=== PATIENT | female | born 1960 | race Caucasian/White ===

== ENCOUNTER 2019-04-11 08:05 | Inpatient (IN) | payer MEDICARE, SELFPAY ==
[2019-04-06 09:42] VITALS: BMI 44.6
[2019-04-11] VITALS (14 sets, daily range): BP systolic 102–131; BP diastolic 61–76; PULSE 80–101; RESP 12–24; TEMP 36.2–37; O2SAT 90–98; BMI 44.9
[2019-04-11] MEDS: LACTATED RINGERS 1,000 ML 42 ML IV ×2 (09:18→12:14)
--- NOTE | 2019-04-11 09:51 | PM.PREOP ---
Pre-operative Note Interval Note History & Physical reviewed/Exam performed by Physician: Yes Changes to H&P: No
--- NOTE | 2019-04-11 10:05 | PM.OP.1 ---
Operative Date/Time/Diagnoses Date of procedure: 04/11/19 Time of procedure: 12:10 Pre-op diagnosis: Right knee osteoarthritis Post-op diagnosis: same Procedure & Clinicians Procedure: Right total knee replacement Same procedure as scheduled: Yes Indications: The patient has had progressively worsening right knee pain with radiographic changes consistent with arthritis. Non-operative management has failed and the patient has requested total knee replacement. The risks, benefits and alternatives to surgery were discussed with the patient prior to proceeding. Risks discussed included, but were not limited to, failure to relieve pain, stiffness, infection, nerve damage, deep venous thrombosis, pulmonary embolism, stroke, coma, heart attack, permanent paralysis and , as well as the potential need for eventual revision of the prosthetic. Surgeon: Quinn Rush Information Tech: Maura Eller Click Yes if Unassisted: No Anesthesia Type: General, Spinal and Local Operative Notes Findings: Significant varus deformity and medial predominant osteoarthritis with some involvement of the patellofemoral joint. Closure Type: primary Specimen(s): none sent Prosthetic devices, grafts, tissues, transplants, or devices: Implants used in this procedure were manufactured by the [employer] and included the BCS II Journey total knee replacement with a size 3 right Oxinium femoral component, a size 3 right non porous tibial base plate, a 9 mm cross-linked polyethylene insert and a 32 mm oval Nabila II patella. Applied: implant(s) Estimated Blood Loss (mL): 25 Blood products transfused: none Tourniquet time (min): 61 Procedure in detail: The patient was seen in the pre-operative area, where the patient identified the right knee as the operative site and this was marked with my initials. The patient received pre-operative antibiotics, and was taken to the operating room and placed on the operative table in the supine position. After satisfactory anesthesia, a construction job cost estimator out was performed. The right leg was encircled with a tourniquet about the proximal thigh, and the leg was prepared from the toes to the tourniquet with ChloroPrep in the usual fashion and draped through sterile drapes. The leg was elevated and exsanguinated with Eschmark bandage and the tourniquet inflated to 250 mmHg pressure. The knee was approached through an approximately 18 cm incision centered over the patella and carried into the knee through a medial parapatellar arthrotomy. The anterior osteophytes and soft tissues were removed. The rotational landmarks of [place] line and the transepicondylar axis were marked on the femur with electrocautery, and intramedullary guide holes for the femur and tibia were created. The distal femoral cut was made in 6 degrees of valgus using the intramedullary guide at the primary cut setting. The proximal tibial cut was then made using the intramedullary guide, taking 9 mm of bone off the less involved side. The extension gap was checked and the rotation of the femoral component confirmed with the gap balancing system. There was medial tightness which was symmetric in both flexion and extension. All osteophytes on the medial side had been removed. A medial soft tissue release was performed to rebalance the knee. This successfully created balanced flexion and extension gaps. The anterior, posterior and chamfer cuts were then made. The posterior osteophytes and soft tissues were then removed. The posterior capsule was injected with part of a mixture of 60 ml 0.25% Marcaine mixed with 20 ml Exparel and 4 mg of morphine for post-operative pain control. The remainder of this mixture was injected into the capsule and subcutaneous tissues during cement curing. The tibia was prepared with the rotation set by an extra medullary guide. Trial tibial and femoral components were then placed and the intercondylar notch cut through the femoral trial. Range of motion was 0-130 degrees, with good stability throughout the range. The patella was then cut to accommodate the patellar prosthetic. There was no need for a lateral release. The trials were then removed, and the femoral hole plugged with a bone plug. The bone was prepared with pulsatile lavage, and dried with a sponge. Cement was applied and the final prosthetics placed. Excess cement was removed during and after cement curing. After confirming there was no extruded cement posteriorly, the final tibial insert was placed. The knee was copiously irrigated and the tourniquet deflated. Hemostasis was obtained. The capsule was closed with interrupted # 2 polyester suture. The subcutaneous layer was closed with 3-0 Vicryl, and the skin with a running 3-0 V-Lock suture and SteriStrips. An Aquacel Ag dressing was applied and the patient was taken to recovery having tolerated the procedure well. Complications: none Post-operative Condition: stable Disposition: PACU Plan for aftercare: The patient will be maintained on a standard total knee replacement protocol with weight bearing as tolerated. The patient will receive aspirin and sequential compression devices for DVT prophylaxis. The patient will be discharged home when safe for the home environment.
[2019-04-11] MEDS: PREGABALIN 75 MG CAPSULE PO (10:30)
[2019-04-11] MEDS: ACETAMINOPHEN 325 MG TABLET 975 MG PO ×3 (10:30→20:36)
[2019-04-11] MEDS: CELECOXIB 200 MG CAPSULE PO (10:30)
[2019-04-11] MEDS: VANCOMYCIN 1,000 MG/200 ML PIGGYBACK 200 MG IV ×2 (10:31→21:12)
[2019-04-11] MEDS: BUPIVACAINE LIPOSOME 266 MG/20 ML VIAL INJ (11:18)
[2019-04-11] MEDS: TRANEXAMIC ACID 1,000 MG VIAL 2000 MG INJ (11:19)
[2019-04-11] MEDS: BUPIVACAINE 0.25% W/ EPI 30 ML VIAL 60 ML INJ (11:19)
[2019-04-11] MEDS: GENTAMICIN 200 MG in SODIUM CHLORIDE 0.9% 100 ML 105 ML IV (11:24)
--- NOTE | 2019-04-11 11:28 | SUR.OPER ---
Supine on padded OR bed. Pillow under head, arms secured on padded armboards <90 degree abduction. Safety belt across torso. Non-operative leg secured with tape over blanket over lower leg. Operative leg secured in DeMayo positioner. Foam padded brace at thigh of operative leg.
--- NOTE | 2019-04-11 13:37 | DI.RAD.S_ITS ---
PROCEDURE: XR KNEE RT 1TO2V INDICATIONS: POST OPERATIVE TOTAL RIGHT KNEE TECHNIQUE: 2 view(s) of the knee acquired. COMPARISON: None. FINDINGS: Bones: Patient is status post knee joint arthroplasty. Hardware components are in expected positions. Visualized bony structures are intact. Soft tissues: Overlying postoperative changes are noted. IMPRESSION: Expected appearance post right knee arthroplasty. Dictated by: Laura Lincoln M.D. on 04/11/2019 at 15:08 Approved by: Laura Lincoln M.D. on 04/11/2019 at 15:09
--- NOTE | 2019-04-11 14:43 | PT-IP ANOTE ---
PT order received, pt just got up to floor and not yet ready to participate in PT eval. Will check back later.
[2019-04-11] MEDS: LACTATED RINGERS 1,000 ML 125 ML IV (14:44)
[2019-04-11] MEDS: OXYCODONE IR 5 MG TABLET PO (18:01)
[2019-04-11] MEDS: hydrOXYzine pamoate 25 MG CAPSULE PO (18:47)
[2019-04-11] MEDS: HYDROMORPHONE 0.5 MG INJ IV ×2 (18:47→21:36)
[2019-04-11] MEDS: CHOLECALCIFEROL (VITAMIN D3) 5,000 UNIT TABLET 5000 UNIT PO (20:36)
[2019-04-11] MEDS: METFORMIN HCL 500 MG TABLET PO (20:37)
[2019-04-11] MEDS: ROSUVASTATIN 10 MG TABLET PO (20:37)
[2019-04-11] MEDS: ASPIRIN EC 81 MG TABLET PO (20:37)
[2019-04-11] MEDS: IBUPROFEN 400 MG TABLET 800 MG PO (20:37)
[2019-04-11] MEDS: DOCUSATE 100 MG CAPSULE PO (20:37)
[2019-04-12] VITALS (8 sets, daily range): BP systolic 92–117; BP diastolic 57–74; PULSE 79–88; RESP 16–20; TEMP 36.6–37.2; O2SAT 93–99
[2019-04-12] MEDS: PANTOPRAZOLE 20 MG TABLET PO (06:06)
[2019-04-12] MEDS: HYDROMORPHONE 0.5 MG INJ IV ×2 (06:30→10:25)
[2019-04-12] MEDS: hydrOXYzine pamoate 25 MG CAPSULE PO ×3 (06:31→23:32)
--- NOTE | 2019-04-12 07:32 | PM.PN.1 ---
Subjective Subjective Date Patient Seen: 04/12/19 Time Patient Seen: 07:32 Interval history: The patient reports she has had uneven pain control overnight. She recently required IV Dilaudid for pain control. Exam Vital Signs (past 8 hours): - 04/12/19 01:12 04/12/19 04:56 Temperature 98 F 98.2 F Pulse Rate 83 83 Respiratory Rate 16 16 Blood Pressure 117/67 115/73 Pulse Oximetry 96 96 Oxygen Delivery Method Nasal Cannula,CPAP Oxygen Flow Rate 0 Narrative Exam Narrative: The right knee wound is dressed with no drainage on the bandage. Calf is soft. Light touch and motion are intact in the right lower extremity. Objective Labs Result Diagrams: 04/12/19 07:07 Assessment & Plan Assessment & Plan narrative: The patient is stable on postoperative day 1 but has moderate pain control issues. She will work with physical therapy today. We will continue to work on controlling her pain. It is likely she will be ready for discharge tomorrow or at the latest the following day. Time Spent With Patient Time with patient: less than 15 minutes
[2019-04-12] MEDS: ACETAMINOPHEN 325 MG TABLET 975 MG PO ×3 (08:46→20:34)
[2019-04-12] MEDS: TRIAMTERENE/HCTZ 37.5/25 TABLET 1 CAP PO (08:47)
[2019-04-12] MEDS: METFORMIN HCL 500 MG TABLET PO ×2 (08:47→20:34)
[2019-04-12] MEDS: FENOFIBRATE 160 MG TABLET PO (08:47)
[2019-04-12] MEDS: GLIMEPIRIDE 2 MG TABLET 1 MG PO (08:47)
[2019-04-12] MEDS: DOCUSATE 100 MG CAPSULE PO ×2 (08:48→20:34)
[2019-04-12] MEDS: LOSARTAN 50 MG TABLET 100 MG PO (08:48)
[2019-04-12] MEDS: FUROSEMIDE 20 MG TABLET 80 MG PO (08:48)
[2019-04-12] MEDS: POTASSIUM CHLORIDE 10 MEQ TAB PO (08:48)
[2019-04-12] MEDS: IBUPROFEN 400 MG TABLET 800 MG PO ×2 (08:48→20:35)
[2019-04-12] MEDS: AMLODIPINE 5 MG TABLET PO (08:48)
[2019-04-12] MEDS: ASPIRIN EC 81 MG TABLET PO ×2 (08:48→20:34)
[2019-04-12] MEDS: INSULIN ASPART 100 UNIT/ML INSULN PEN SUBCUT ×3 (08:50→16:57)
[2019-04-12 09:35] LABS: Hematocrit 34.1 % (36-46); Hemoglobin 11.7 g/dL (12.0-16.0)
--- NOTE | 2019-04-12 10:46 | PC.NURSE ---
Day Shift- Poke with LAVONNE Montenegro this AM at 0745, regarding pt's allergy to Oxycodone and Hydrocodone. Only Dilaudid IV prn available for pain management at this time. PA stated he will look into changing PRN PO pain meds to Dilaudid PO. Pt's pain currently 6/10 deep ache to right knee and thigh Left message on LAVONNE Lorenzo cell regarding needing new pain med orders. Faxed Ortho Team in surgery at 1040 regarding above. Spoke with LAVONNE Perkins on unit at 1045 regarding pain management. Who will place new orders, pt's pain now 8-9/10, Dilaudid IV prn given at 1025. Right knee aquacel dressing CDI, donna wrap in place, CMS +
[2019-04-12] MEDS: HYDROMORPHONE 2 MG TABLET PO ×4 (11:01→23:32)
--- NOTE | 2019-04-12 11:10 | CM.DANOTE ---
Patient recent surgery of R knee replacement. Very pleasant and A&O x 4. Reports she has low pain tolerance, so is worried about being discharged home before she feels she's ready. Pt. has not yet seen therapy. When asked about her thoughts regarding discharge plan she stated that she wants to go home, but I'd like to be pain free first. This RN educated patient about pain medications and their benefits/limitations. She has 4 steps to manage. Her has set up the house to make it easier for her to maneuver. She has walkers, shower chair rails where needed,etc. She states her is on board with caring for her as long as it doesn't involve a great deal of manual labor. I mentioned the option for SNF, but she really would prefer to go home if possible. Didn't discuss SNF choices at this time.
--- NOTE | 2019-04-12 13:15 | PT.IIE ---
Current Diagnoses Unilateral primary osteoarthritis, right knee (04/11/19) Surgery Performed Operation Date: 04/11/19 10:15 Actual Procedures p Total Knee Arthroplasty(Right) - Quinn Rush MD Surgical History (Last Updated 04/06/19 @ 10:28 by Macey Wyatt, RN) History of bladder surgery (Acute ~2010) Hx of appendectomy (Acute) Hx of arthroscopy of left knee (Acute) Hx of arthroscopy of right knee (Acute) Hx of cholecystectomy (Acute) Hx of laminectomy (Acute) S/P foot surgery, right (Acute) Medical History (Last Updated 04/06/19 @ 10:28 by Macey Wyatt RN) Depression (Acute) Diabetes (Acute) Diabetic neuropathy (Acute) Edema (Acute) Enlarged liver (Acute) Former smoker (Acute) GERD (gastroesophageal reflux disease) (Acute) H/O: hysterectomy (Acute ~1988) HLD (hyperlipidemia) (Acute) HTN (hypertension) (Acute) Migraines (Acute) JOÃO on CPAP (Acute) Pulmonary fibrosis (Acute) RLS (restless legs syndrome) (Acute) Physical Therapy Inpatient Evaluation/Re-Eval M1 PT/OT-IP Prior Functional Status Start: 04/11/19 14:30 Freq: NEEDED Status: Active Protocol: Document 04/12/19 12:59 AW (Rec: 04/12/19 13:15 AW [email or web address]) Medical Review Prior Functional Status Medical History Reviewed Yes Diet/Fluid Consistency Regular Communication Able to make needs known Mobility and Gait Pt reports she used a SBQC for community distance ambulation , no assistive device at home, though she does admit to occasionally using furniture/ dave to stabilize. Activities of Daily Living and IADL's Independent Social History Household Members spouse Living Arrangements House Number of Floors (Floors) One Floor Number of Stairs To Enter/Railing? 4 [place] with no railing Home Environment Standard Height Toilet,Tub/ Shower Home Equipment Front Wheel Walker,Quad Cane, Raised Toilet Seat w/Armrests, Shower Seat with Backrest,Hand Held Shower Employment Status Unemployed Additional Social History Comment Pt has a SBQC, standard walker , and 4WW for mobility M2 PT-IP Current Condition Start: 04/11/19 14:30 Freq: NEEDED Status: Active Protocol: Document 04/12/19 12:59 AW (Rec: 04/12/19 13:15 AW [email or web address]) Physical Therapy Current Condition Current Condition Evaluation Date 04/12/19 Treatment Diagnosis s/p R TKA, impaired transfers and gait Weight Bearing Status Weight Bearing Status Weight Bear as Tolerated M3 PT-IP Subjective Start: 04/11/19 14:30 Freq: NEEDED Status: Active Protocol: Document 04/12/19 12:59 AW (Rec: 04/12/19 13:15 AW [email or web address]) Subjective Physical Therapy Visit Type Type Initial Evaluation Visit Start Time 11:59 Visit Stop Time 12:31 Total Visit Minutes 32 Number of FISHER POT Visits 0 Physical Therapy Visit Comments Patient Comments Pt reports pain which improved with IV dilaudid but continues with 6/10 pain at rest. Patient Goals At beginning of session, pt hopes to return home with spouse assist. By end of session, she was open to considering SNF rehab Therapy Pain Assessment Pain When Pain Assessed During Mobility Pain Present Pain Present Pain Reported Location Right Knee Intensity 10 Scale Used 6/10 at rest, 10/10 with short bout ambulation using FWW Pain Management Techniques Apply Cold,Modification of Treatment,Re-positioning, Timing of Activity with Medications M4 PT-IP Mobility and Gait Start: 04/11/19 14:30 Freq: NEEDED Status: Active Protocol: Document 04/12/19 12:59 AW (Rec: 04/12/19 13:15 AW [email or web address]) PT-Bed Mobility Assessment Rolling Type of Rolling Roll to Right Level of Assist Contact Guard Assistance Supine to Sit Supine to Sit Contact Guard Assistance Scooting Scooting to Edge of Bed Standby Assistance PT-Transfer Assessment Sit to and From Stand Sit to and from Stand Minimal Assistance Equipment Transfer Assistive Device Gait Belt,Front Wheeled Walker Orthotic/Prosthetic Devices or Brace: No Transfers Transfer Destination Chair,Bedside Commode Transfer Technique Stand Step Pivot Transfer Ability Level of Assist Minimal Assistance Comments Mobility Comments Pt required min assist to stand step pivot from EOB to BSC and min assist from BSC to chair. Gait Assessment Gait Gait Assistance Required: Contact Guard Assist,Minimum Assistance Distance (Feet) 5 Able to Maintain Weight Bearing Status Yes During Gait Assistive Devices Assistive Device Gait Belt,Front Wheeled Walker Orthotic/Prosthetic Devices or Brace: No Gait Deviations General Gait Pattern Antalgic,Decreased Stride Length,Decreased Feet Clearance,Flexed Trunk,Step-to Gait Factors Limiting Gait Function Factors Limiting Gait Function Decreased Activity Tolerance, Decreased Sensation,Limited Range of Motion,Pain,Poor Balance Comments Gait Comments Pt with good safety awareness but pain limiting ambulation distance with min assist required for ambulation 5 feet with FWW. Pt had one lateral loss of balance which required assist for recovery. PT-Balance Assessment Sitting Balance and Reactions Static Sitting Balance Ability Good Dynamic Sitting Balance Ability Good Standing Balance and Reactions Static Standing Balance Ability Fair Dynamic Standing Balance Ability Fair Device Used FWW M5 PT-IP Objective Assessments Start: 04/11/19 14:30 Freq: NEEDED Status: Active Protocol: Document 04/12/19 12:59 AW (Rec: 04/12/19 13:15 AW [email or web address]) Orientation Orientation/Cognition Level of Alertness Alert Orientation Name,Date,Place,Situation Language Function Ability No Deficits Noted Safety Awareness Understands Safety Issues Memory Description No Deficits Noted Gross Range of Motion Upper Extremity ROM Assessment Within Functional Limits Lower Extremity ROM Assessment Right Impaired Impairments painful R knee ROM Strength Upper Extremity Strength Assessment Within Functional Limits Lower Extremity Strength Assessment Right Impaired Coordination Assessment Gross Coordination Gross Coordination WNL Sensation Assessment Sensation Gross Sensation WNL Muscle Tone Muscle Tone WNL Yes M6 PT-IP Treatment Start: 04/11/19 14:30 Freq: NEEDED Status: Active Protocol: Document 04/12/19 12:59 AW (Rec: 04/12/19 13:15 AW [email or web address]) Physical Therapy Treatment Exercises Exercises Ankle Pumps,Quad Sets,Passive Knee Extension Hang Education Education Provided Precautions,Weight Bearing Status,Post-Op Packet,Safety M7 PT-IP Assessment and Plan Start: 04/11/19 14:30 Freq: NEEDED Status: Active Protocol: Document 04/12/19 12:59 AW (Rec: 04/12/19 13:15 AW [email or web address]) PT Summary Assessment and Plan Potential Rehabilitation Potential Good Status of Condition at Evaluation Evolving Summary Impairments Pain,ROM,Strength,Balance,Bed Mobility,Transfers,Gait, Activity Tolerance Assessment Summary Pt is a 58 yo woman seen on POD1 following R TKA. PLOF: According to pt, she was ambulating household distances with no assistive device but with occasional need to cruise furniture for support. She used a SBQC for ambulating community distances. PLOF: Pt requiring min assist for transfers and gait with FWW, reporting sharp increase in pain with mobility (from 6/10 at rest to 10/10). Spouse is available to assist at home, but stairs are likely a barrier to home entry. Reviewed PT plan of care, post -op exercises, and safe use of FWW. Pt would benefit from SNF rehab for strengthening and increased independence in transfers, gait, and stairs before return to home. Goals Bed Mobility Goal Standby Assistance Transfer Goal Standby Assistance Gait Goal Standby Assistance Gait Distance 50 Other Goals Pt to ascend/descend 4 steps with hand-hold assist/CGA Days to Meet Goals 8 Frequency of Treatment Frequency Of Treatment Twice a Day Treatment Plan Physical Therapy Treatment Plan Bed Mobility Training,Transfer Training,Gait Training, Therapeutic Exercise,Balance Retraining,Post Op Education, Discharge Planning,Hot or Cold Pack,Neuromuscular Re-ed, Coordination Retraining,Manual Therapy Other Recommendations and Next Treatment Progress gait distance as Focus tolerated. May require wheelchair follow. Recommendations To Nursing Amount of Assist Needed 2 Person Assist Discharge Recommendations PT Discharge Recommendations SNF Rehab Other Discharge Recommendations Will continue to assess, but pt likely will need SNF rehab for safe return to home
--- NOTE | 2019-04-12 16:30 | CM.DANOTE ---
Addendum entered by Carolann Cotto 04/13/19 09:03: Received verbal referral from therapy that SNF recommended. SUBSYSTEMS ENGINEER met with patient and spouse re: d/c options. Patient agreeable to short SNF stay if needed and her insurance will cover. Contracted provider for [employer] in [place] is Dawn Pennington. Therefore, this is patient/spouse choice. Asked COUNTY SURVEYOR/Ashley to fax clinical to Dawn Pennington for review and to start authorization process. Patient aware that if she improves over the next 24hrs. SNF can be cancelled. P: CM team to continue to follow closely. ARMANDO Marquez Original Note: *[facility] [place] Female : 1960 MedRec# [id number] 04/12/19 11:10 - CM Disch. Assessment Note by Rosalina Bryan RN Acct Num: [id number] : 1960 Patient Age: 58 Patient recent surgery of R knee replacement. Very pleasant and A&O x 4. Reports she has low pain tolerance, so is worried about being discharged home before she feels she's ready. Pt. has not yet seen therapy. When asked about her thoughts regarding discharge plan she stated that she wants to go home, but I'd like to be pain free first. This RN educated patient about pain medications and their benefits/limitations. She has 4 steps to manage. Her has set up the house to make it easier for her to maneuver. She has walkers, shower chair rails where needed,etc. She states her is on board with caring for her as long as it doesn't involve a great deal of manual labor. I mentioned the option for SNF, but she really would prefer to go home if possible. Didn't discuss SNF choices at this time. Initialized on 04/12/19 11:10 - END OF NOTE Discharge Planning/Care Management CM Discharge Assessment Start: 04/12/19 16:24 Freq: Status: Active Protocol: Document 04/12/19 16:24 LANNY (Rec: 04/12/19 16:29 LANNY [email or web address]) Discharge Planning Assessment Assigned Administrative Law Judge Winifred Bryan Advance Directives? No History Provided By Patient,Family Member Has Patient been admitted in last 30 No days? Prior Living Arrangements House Household Members spouse Independent with ADL's Yes Is patient alert and oriented? Yes Needs Assistance With Bathing,Grooming,Meal Prep, Toileting,Managing Medications ,Home Chores / Shopping Comment PT/OT evaluations pending Comment pending needs assessment Discharge Plan Left AMA Please Provide Date Initial DC 04/12/19 Assessment Was Performed Pre-Anesthesia Assessment Start: 04/06/19 09:42 Freq: Status: Complete Protocol: Document 04/06/19 09:42 CAB (Rec: 04/06/19 11:06 CAB [id number]) Pre-Anesthesia Assessment PAC Comment Anesthesia review, pulmonary consult, PFT, PCP clearance, Echo scanned to record Patient Information Reviewed Via Phone Assessment Assessment Completed With Patient Diagnostic Results BMP/CMP,CBC,Urinalysis Comment Outside labs/EKG 01/21/19 scanned to record Primary Care Provider Macario Montaño Medical Clearance Received Yes Seen Specialist in Last 12 Months Yes Specialist Seen Orthopedist,Rd Scientist Comment PCP pre-op clearance 01/17/19 scanned to record Primary Language [place] Land Management Supervisor Required No Height 162.56 cm Weight 117.934 kg Body Mass Index (BMI) 44.6 Hearing Ability Normal Visual Assist Glasses Dentition Type Teeth, Natural Present Barriers to Learning None Other Aids Yes: CPAP Hx Anesthesia Reactions Yes: Hard to bring me out, bad headaches Hx Family Anesthesia Reaction No: Unknown, pt is adopted Hx Malignant Hyperthermia No Hx Blood Transfusions No Anesthesia Review Requested Yes: PFT requested by Anesthesia, scanned to record alcohol intake former Smoking Status Former smoker Tobacco type cigarettes Smoking packs per day 1 how long ago did patient quit smoking Quit 1993 Substance Use Type does not use Pain Present Pain Reported Musculoskeletal Symptoms Abnormal Gait,Back Pain, Difficulty Walking,Joint Pain, Muscle Weakness,Neck Pain, Numbness History of Falling (Recent or History of No ) Patient is completely paralyzed or No completely immobile Prosthesis or Orthotic Device Cane Mental Status Oriented to own ability Is patient on oxygen? No Does patient have [place]/SOB Yes: Hx Pulmonary fibrosis Hx Sleep Apnea Yes CPAP/BIPAP use prescribed and used routinely Will Bring CPAP/BIPAP DOS Yes Comment PFT per Anesthesia, Pulmonary consult scanned to record Currently Taking a Beta Karena No Can You Climb a Flight of Stairs Without No SOB Hx Chest Pain No Hx SOB Yes Hx Syncope or Dizziness No Anti-Coagulant Therapy No Has a Choir Singer No Cardiac Testing Yes: Echo 01/03/19 [facility] EF 60- 65% Hx Pacemaker/ICD No Pacemaker Rep Required? No Cardiac Clearance Received Not Applicable Diet Type At Home Regular dysphagia No Bladder Pattern Frequency,Incontinent,Nocturia ,Urgency Urinary Catheter Present No Hx Urinary Self Catheterization No Diabetes Does not check blood sugar HgbA1C 6.1 Date 01/21/19 Patient No Lactating No Hx Drug Resistant Organism No Presence of External or Internal Medical Yes: Bladder mesh, CPAP Devices Have you traveled outside the [facility] in the last 30 days? Marital Status Lives With spouse Prior Living Arrangements House Number of Floors (Floors) One Floor Support System Spouse Does the Patient Have Assistance After Yes Surgery Patient Discharge Plan Description Return Home Comment Pt advised 3-5 day length of stay per surgeon Feels Safe in Current Environment Yes Been Physically Hurt or Threatened By a No Person in Current Environment Do you have thoughts of harming yourself None or others? Are you currently considering suicide? No Do you have a plan to hurt yourself or No Plan others? Do You Have Any Spiritual Beliefs That No May Affect Your HC Choices? Do You Have Any Cultural Practices That No May Affect Your HC Choices? Comment Mosque Who Can We Speak to About Patient's Care Family, friends Identifying Code for Release of Patient Bandit Information Health Care Proxy/Next of Kin Will () Health Care Proxy Emergency Contact Name Will () Emergency Contact Advance Directives? No: Declines further information PAC Instructions Bring CPAP/BIPAP,Do not shave/ clip surgical site,Durable medical equipment,Medications to take/avoid,Nasal antibiotic ,No ETOH/petroleum product on skin DOS,Pre-surgical wash, Sturdy shoes/comfortable clothes,Do not bring valuables and remove jewelry
--- NOTE | 2019-04-12 17:10 | PT-IP ANOTE ---
Contacted pt at 1705. She had her dinner tray, was fatigued and complaining of 8/10 pain, asked to defer treatment today. Will follow up 04/13/19
[2019-04-12] MEDS: ROSUVASTATIN 10 MG TABLET PO (20:34)
[2019-04-12] MEDS: CHOLECALCIFEROL (VITAMIN D3) 5,000 UNIT TABLET 5000 UNIT PO (20:35)
[2019-04-12] MEDS: SODIUM CHLORIDE 0.9% FLUSH 10 ML IV (20:35)
[2019-04-13 03:00] VITALS: BP 115/67; PULSE 76; RESP 16; TEMP 36.9; O2SAT 94
[2019-04-13] MEDS: PANTOPRAZOLE 20 MG TABLET PO (05:39)
[2019-04-13] MEDS: HYDROMORPHONE 2 MG TABLET PO ×5 (05:39→21:41)
--- NOTE | 2019-04-13 06:56 | PM.PNPO.1 ---
Subjective Subjective Date Patient Seen: 04/13/19 Time Patient Seen: 06:56 Interval history: The patient reports that she has good pain control this morning. She had significant pain control difficulties late last evening. She made minimal progress with physical therapy and refused her 2nd therapy session yesterday. At this point physical therapy is recommending likely fpc facility placement. Exam Vital Signs (past 8 hours): - 04/12/19 23:23 04/13/19 03:00 Temperature 99 F 98.5 F Pulse Rate 82 76 Respiratory Rate 16 16 Blood Pressure 113/74 115/67 Pulse Oximetry 93 94 Oxygen Delivery Method Room Air,CPAP Oxygen Flow Rate 0 Narrative Exam Narrative: Right knee wound is dressed with no drainage on the bandage. Calf is soft. Light touch and motion are intact in the right lower extremity. Objective Labs Result Diagrams: 04/12/19 09:20 Labs: Laboratory Results - last 24 hr 04/12/19 09:20 Hgb 11.7 L Hct 34.1 L Assessment & Plan Post-op Postoperative Procedures: Procedures Operation Date: 04/11/19 10:15 Actual Procedures Side Surgeon p Total Knee Arthroplasty Right Quinn Rush MD Postoperative day: 2 Postoperative status: doing well, marginal pain control and anemia Postoperative status narrative: The patient is medically stable postoperative day 2 after right total knee replacement. She has the expected post hemorrhagic anemia. She has been having marginal pain control and has not been proactive in physical therapy. Postoperative plan: routine post-op care and ambulate Postoperative plan narrative: I have encouraged the patient to work harder in physical therapy. I have explained to her that fpc facilities are not spas and that it is highly unlikely she is going to enjoy staying there. I have explained to her that she will do better in the long run if she is ready to discharge to home. We will keep her in the hospital through tomorrow to give her additional attempts at physical therapy. Have explained to her that I am not happy with her decision to cancel therapy yesterday afternoon. I have explained that I would like her to take part in all her therapy sessions. She understands. She is aware that she will be seen tomorrow by a physician's secretary administrative assistant as I am starting very early and [place] tomorrow morning. Time Spent With Patient Time with patient: less than 15 minutes
[2019-04-13 08:00] VITALS: BP 123/67; PULSE 90; RESP 22; TEMP 36.8; O2SAT 92
[2019-04-13] MEDS: IBUPROFEN 400 MG TABLET 800 MG PO ×2 (09:08→21:41)
[2019-04-13] MEDS: ACETAMINOPHEN 325 MG TABLET 975 MG PO ×3 (09:08→21:41)
[2019-04-13] MEDS: ASPIRIN EC 81 MG TABLET PO ×2 (09:08→21:41)
[2019-04-13] MEDS: GABAPENTIN 400 MG CAPSULE 800 MG PO (09:09)
[2019-04-13] MEDS: POTASSIUM CHLORIDE 10 MEQ TAB PO (09:09)
[2019-04-13] MEDS: AMLODIPINE 5 MG TABLET PO (09:09)
[2019-04-13] MEDS: FUROSEMIDE 20 MG TABLET 80 MG PO (09:09)
[2019-04-13] MEDS: DOCUSATE 100 MG CAPSULE PO ×2 (09:09→21:41)
[2019-04-13] MEDS: METFORMIN HCL 500 MG TABLET PO ×2 (09:09→21:41)
[2019-04-13] MEDS: TRIAMTERENE/HCTZ 37.5/25 TABLET 1 CAP PO (09:10)
[2019-04-13] MEDS: FENOFIBRATE 160 MG TABLET PO (09:10)
[2019-04-13] MEDS: GLIMEPIRIDE 2 MG TABLET 1 MG PO (09:10)
[2019-04-13] MEDS: SODIUM CHLORIDE 0.9% FLUSH 10 ML IV ×2 (09:11→21:42)
--- NOTE | 2019-04-13 10:35 | PT.IPTN ---
Current Diagnoses Unilateral primary osteoarthritis, right knee (04/11/19) Surgery Performed Operation Date: 04/11/19 10:15 Actual Procedures p Total Knee Arthroplasty(Right) - Quinn Rush MD Physical Therapy Treatment Note M2 PT-IP Current Condition Start: 04/11/19 14:30 Freq: NEEDED Status: Active Protocol: Document 04/12/19 12:59 AW (Rec: 04/12/19 13:15 AW [email or web address]) Physical Therapy Current Condition Current Condition Evaluation Date 04/12/19 Treatment Diagnosis s/p R TKA, impaired transfers and gait Weight Bearing Status Weight Bearing Status Weight Bear as Tolerated M3 PT-IP Subjective Start: 04/11/19 14:30 Freq: NEEDED Status: Active Protocol: Document 04/13/19 10:30 GGD (Rec: 04/13/19 12:08 GGD [id number]) Subjective Physical Therapy Visit Type Type Treatment Note Visit Start Time 10:05 Visit Stop Time 10:33 Total Visit Minutes 28 Number of GLASS BULB SILVERER Visits 1 Physical Therapy Visit Comments Patient Comments Pt needs to use the bathroom. Therapy Pain Assessment Pain When Pain Assessed During Mobility Pain Present Pain Present Pain Reported Location Right Knee Intensity 7 Scale Used Numeric (1 - 10) Pain Management Techniques Apply Cold,Modification of Treatment,Re-positioning, Timing of Activity with Medications M4 PT-IP Mobility and Gait Start: 04/11/19 14:30 Freq: NEEDED Status: Active Protocol: Document 04/13/19 10:30 GGD (Rec: 04/13/19 12:08 GGD [id number]) PT-Bed Mobility Assessment Rolling Type of Rolling Roll to Right Level of Assist Contact Guard Assistance Supine to Sit Supine to Sit Contact Guard Assistance, Bedrails Scooting Scooting to Edge of Bed Standby Assistance PT-Transfer Assessment Sit to and From Stand Sit to and from Stand Contact Guard Assistance Equipment Transfer Assistive Device Gait Belt,Front Wheeled Walker Orthotic/Prosthetic Devices or Brace: No Transfers Transfer Destination Chair,Toilet Transfer Ability Level of Assist Contact Guard Assistance,1 Person Assistance,Use of Upper Extremities Gait Assessment Gait Gait Assistance Required: Contact Guard Assist,1 Person Assist Distance (Feet) 30 Assistive Devices Assistive Device Gait Belt,Front Wheeled Walker Orthotic/Prosthetic Devices or Brace: No Gait Deviations General Gait Pattern Antalgic,Decreased Stride Length,Decreased Feet Clearance,Flexed Trunk,Step-to Gait Factors Limiting Gait Function Factors Limiting Gait Function Decreased Activity Tolerance, Decreased Sensation,Limited Range of Motion,Pain,Poor Balance M5 PT-IP Objective Assessments Start: 04/11/19 14:30 Freq: NEEDED Status: Active Protocol: Document 04/12/19 12:59 AW (Rec: 04/12/19 13:15 AW [email or web address]) Orientation Orientation/Cognition Level of Alertness Alert Orientation Name,Date,Place,Situation Language Function Ability No Deficits Noted Safety Awareness Understands Safety Issues Memory Description No Deficits Noted Gross Range of Motion Upper Extremity ROM Assessment Within Functional Limits Lower Extremity ROM Assessment Right Impaired Impairments painful R knee ROM Strength Upper Extremity Strength Assessment Within Functional Limits Lower Extremity Strength Assessment Right Impaired Coordination Assessment Gross Coordination Gross Coordination WNL Sensation Assessment Sensation Gross Sensation WNL Muscle Tone Muscle Tone WNL Yes M6 PT-IP Treatment Start: 04/11/19 14:30 Freq: NEEDED Status: Active Protocol: Document 04/13/19 10:30 GGD (Rec: 04/13/19 12:08 GGD [id number]) Physical Therapy Treatment Exercises Exercises Ankle Pumps,Quad Sets,Heel Slides,Seated Knee Flexion/ Extension Education Education Provided Safety M7 PT-IP Assessment and Plan Start: 04/11/19 14:30 Freq: NEEDED Status: Active Protocol: Document 04/13/19 10:30 GGD (Rec: 04/13/19 12:08 GGD [id number]) PT Summary Assessment and Plan Summary Assessment Summary Pt able to progress gait distance. She had heavy use of UE. Pt needed use of UE for sit to stand Frequency of Treatment Frequency Of Treatment Twice a Day Treatment Plan Physical Therapy Treatment Plan Bed Mobility Training,Transfer Training,Gait Training, Therapeutic Exercise,Balance Retraining,Post Op Education, Discharge Planning,Hot or Cold Pack,Neuromuscular Re-ed, Coordination Retraining,Manual Therapy Other Recommendations and Next Treatment stair training with family Focus Recommendations To Nursing Amount of Assist Needed 1 Person Assist Discharge Recommendations PT Discharge Recommendations Home with Assistance
--- NOTE | 2019-04-13 11:18 | PC.NURSE ---
AM NOTE - pt is alert, states r knee pain 8 on scale 0/10, has ice pack to knee, aquacell w/donna wrap over cdi, + cms feet, discussed pain mgt and given tylenol w/ibuprofen after breakfast and then 2mg po dilaudid prior to phys therapy, pt able to stand x 1 person w/fww, ambul around bed to chair, pain managed with medications given, ra 96%.
[2019-04-13 12:22] VITALS: BP 98/58; PULSE 80; RESP 20; TEMP 36.8; O2SAT 94
[2019-04-13] MEDS: INSULIN ASPART 100 UNIT/ML INSULN PEN SUBCUT (12:43)
--- NOTE | 2019-04-13 14:15 | PT.IPTN ---
Current Diagnoses Unilateral primary osteoarthritis, right knee (04/11/19) Surgery Performed Operation Date: 04/11/19 10:15 Actual Procedures p Total Knee Arthroplasty(Right) - Quinn Rush MD Physical Therapy Treatment Note M2 PT-IP Current Condition Start: 04/11/19 14:30 Freq: NEEDED Status: Active Protocol: Document 04/12/19 12:59 AW (Rec: 04/12/19 13:15 AW [email or web address]) Physical Therapy Current Condition Current Condition Evaluation Date 04/12/19 Treatment Diagnosis s/p R TKA, impaired transfers and gait Weight Bearing Status Weight Bearing Status Weight Bear as Tolerated M3 PT-IP Subjective Start: 04/11/19 14:30 Freq: NEEDED Status: Active Protocol: Document 04/13/19 14:04 AMH (Rec: 04/13/19 14:14 AMH [email or web address]) Subjective Physical Therapy Visit Type Type Treatment Note Visit Start Time 13:25 Visit Stop Time 14:00 Total Visit Minutes 35 Number of YEAST FERMENTATION ATTENDANT Visits 0 Physical Therapy Visit Comments Patient Comments pt reports she is ready to work on the stair with PT Therapy Pain Assessment Pain When Pain Assessed During Mobility Pain Present Pain Present Pain Reported Location Right Knee Intensity 9 Scale Used Numeric (1 - 10) M4 PT-IP Mobility and Gait Start: 04/11/19 14:30 Freq: NEEDED Status: Active Protocol: Document 04/13/19 14:04 AMH (Rec: 04/13/19 14:14 AMH [email or web address]) PT-Transfer Assessment Sit to and From Stand Sit to and from Stand Contact Guard Assistance Equipment Transfer Assistive Device Gait Belt,Front Wheeled Walker Orthotic/Prosthetic Devices or Brace: No Transfers Transfer Destination Chair,Toilet Transfer Ability Level of Assist Contact Guard Assistance,1 Person Assistance,Use of Upper Extremities Comments Mobility Comments CGA sit-stand from bedside chair and CGA to go from standing to sit in bedside chair Gait Assessment Gait Gait Assistance Required: Contact Guard Assist,1 Person Assist Distance (Feet) 25 Assistive Devices Assistive Device Gait Belt,Front Wheeled Walker Orthotic/Prosthetic Devices or Brace: No Gait Deviations General Gait Pattern Antalgic,Decreased Stride Length,Decreased Feet Clearance,Flexed Trunk,Step-to Gait Factors Limiting Gait Function Factors Limiting Gait Function Decreased Activity Tolerance, Decreased Sensation,Limited Range of Motion,Pain,Poor Balance Comments Gait Comments good tolerance for gait today and pain actually decreased after we got her moving Stair Climbing Assessment Evaluation Level of Assist On Stairs Minimal Assistance,1 Person Assistance Devices Stair Climbing Assistive Devices Left Railing,Right Railing Technique/Endurance Stair Climbing Direction Ascend and Descend Stair Climbing Technique Step to Step Number of Steps Climbed 6 Stair Climbing Set # Repetitions (reps) 2 Comments Stair Climbing Comments Stair training was done with present this afternoon . The pt was able to do stairs going up with the left and down with the right. SHe did require use of both handrails. It would benefit her from practicing this again in the am prior to DC home as there are no hand rails at home. I did teach her the sit and scoot method as well M5 PT-IP Objective Assessments Start: 04/11/19 14:30 Freq: NEEDED Status: Active Protocol: Document 04/12/19 12:59 AW (Rec: 04/12/19 13:15 AW [email or web address]) Orientation Orientation/Cognition Level of Alertness Alert Orientation Name,Date,Place,Situation Language Function Ability No Deficits Noted Safety Awareness Understands Safety Issues Memory Description No Deficits Noted Gross Range of Motion Upper Extremity ROM Assessment Within Functional Limits Lower Extremity ROM Assessment Right Impaired Impairments painful R knee ROM Strength Upper Extremity Strength Assessment Within Functional Limits Lower Extremity Strength Assessment Right Impaired Coordination Assessment Gross Coordination Gross Coordination WNL Sensation Assessment Sensation Gross Sensation WNL Muscle Tone Muscle Tone WNL Yes M6 PT-IP Treatment Start: 04/11/19 14:30 Freq: NEEDED Status: Active Protocol: Document 04/13/19 14:04 AMH (Rec: 04/13/19 14:14 AMH [email or web address]) Physical Therapy Treatment Exercises Exercises Ankle Pumps,Quad Sets,Heel Slides,Seated Knee Flexion/ Extension Education Education Provided Safety M7 PT-IP Assessment and Plan Start: 04/11/19 14:30 Freq: NEEDED Status: Active Protocol: Document 04/13/19 14:04 AMH (Rec: 04/13/19 14:14 AMH [email or web address]) PT Summary Assessment and Plan Summary Assessment Summary stair training done today with good tolerance using Bilateral handrails. She will not have hand rails at home but her will be there to assist her. She would benefit from practicing stairs again in the am Frequency of Treatment Frequency Of Treatment Twice a Day Treatment Plan Physical Therapy Treatment Plan Bed Mobility Training,Transfer Training,Gait Training, Therapeutic Exercise,Balance Retraining,Post Op Education, Discharge Planning,Hot or Cold Pack,Neuromuscular Re-ed, Coordination Retraining,Manual Therapy Other Recommendations and Next Treatment Do a second set of stair Focus training tomorrow am prior to DC
[2019-04-13 15:38] VITALS: BP 143/48; PULSE 89; RESP 18; TEMP 36.8; O2SAT 95
--- NOTE | 2019-04-13 15:57 | CM.DPC ---
DCP/continued: Reviewed chart. Current d/c plan was pending patient's progress. Reviewed therapy notes from today. Current recommendation is home rather than SNF. Therapy continues to work with patient on navigating stairs. P: Anticipate home when medically stable. SNF plan started however, do not think it will be necessary given patient's progress over the last 24hrs. CM team to continue to follow closely. ARMANDO Marquez
[2019-04-13 19:54] VITALS: BP 108/71; PULSE 85; RESP 20; TEMP 37.1; O2SAT 95
[2019-04-13] MEDS: ROSUVASTATIN 10 MG TABLET PO (21:41)
[2019-04-13] MEDS: CHOLECALCIFEROL (VITAMIN D3) 5,000 UNIT TABLET 5000 UNIT PO (21:42)
[2019-04-13 23:10] VITALS: BP 123/64; PULSE 98; RESP 18; TEMP 36.8; O2SAT 93
[2019-04-14] MEDS: HYDROMORPHONE 2 MG TABLET PO ×4 (01:28→14:18)
[2019-04-14 05:12] VITALS: BP 119/64; PULSE 78; RESP 18; TEMP 36.2; O2SAT 119
[2019-04-14] MEDS: PANTOPRAZOLE 20 MG TABLET PO (06:03)
[2019-04-14 08:30] VITALS: BP 118/76; PULSE 77; RESP 20; TEMP 36.4; O2SAT 97
[2019-04-14] MEDS: ACETAMINOPHEN 325 MG TABLET 975 MG PO ×2 (10:12→14:09)
[2019-04-14] MEDS: AMLODIPINE 5 MG TABLET PO (10:13)
[2019-04-14] MEDS: ASPIRIN EC 81 MG TABLET PO (10:13)
[2019-04-14] MEDS: DOCUSATE 100 MG CAPSULE PO (10:14)
[2019-04-14] MEDS: FENOFIBRATE 160 MG TABLET PO (10:14)
[2019-04-14] MEDS: FUROSEMIDE 20 MG TABLET 80 MG PO (10:15)
[2019-04-14] MEDS: GLIMEPIRIDE 2 MG TABLET 1 MG PO (10:15)
[2019-04-14] MEDS: GABAPENTIN 400 MG CAPSULE 800 MG PO (10:15)
[2019-04-14] MEDS: IBUPROFEN 400 MG TABLET 800 MG PO (10:16)
[2019-04-14] MEDS: LOSARTAN 50 MG TABLET 100 MG PO (10:17)
[2019-04-14] MEDS: METFORMIN HCL 500 MG TABLET PO (10:17)
[2019-04-14] MEDS: POTASSIUM CHLORIDE 10 MEQ TAB PO (10:17)
[2019-04-14] MEDS: SODIUM CHLORIDE 0.9% FLUSH 10 ML IV (10:17)
[2019-04-14] MEDS: TRIAMTERENE/HCTZ 37.5/25 TABLET 1 CAP PO (10:18)
[2019-04-14 12:00] VITALS: BP 110/50; PULSE 91; RESP 18; TEMP 36.4; O2SAT 96
--- NOTE | 2019-04-14 12:04 | P.DS_ITS ---
History of Present Illness History of Present Illness Date Patient Seen: 04/14/19 Time Patient Seen: 12:04 Chief complaint: [id number] Narrative: Hospital day 4, postop day 3 following right total knee arthroplasty by Dr. Rush. Patient did do better yesterday with physical therapy. She did pass stairs. PT does feel patient is okay going home. She is scheduled to go to [facility] and [facility]. Discharge Providers Provider Date of admission: 04/11/19 08:05 Discharge Date: 04/14/19 Primary care physician: Macario Montaño DO Consults: 04/11/19 14:13 Consult to Discharge Planning Routine Comment: Consult to Physical Therapy Evaluate & Treat Comment: Physician Instructions: postop TKA protocol Discharge provider: Niko Bran PA-C Summary Hospital Course Discharge Diagnosis: Status post right total knee arthroplasty Hospital Course: Patient brought to hospital on 04/11/2019 for above noted surgery. She progressed slowly with physical therapy the 1st couple of days but then improved significantly. She has passed all PT measures and is ready for discharge home on postop day 3. Status at Discharge Cognitive/behavioral status at discharge: oriented Functional status at discharge: uses cane/walker Overall status at discharge: patient is progressing back to baseline Time Spent with Patient Time spent: Less than 30 minutes Exam Vital Signs (past 8 hours): - 04/14/19 05:12 04/14/19 08:30 Temperature 97.1 F L 97.5 F L Pulse Rate 78 77 Respiratory Rate 18 20 Blood Pressure 119/64 118/76 Pulse Oximetry 119 H 97 Oxygen Delivery Method CPAP Oxygen Flow Rate 0 Narrative Exam Narrative: Alert, oriented no acute distress lying in bed. Legs. Aquacel dressing to right knee is dry without drainage or inflammation. Mild swelling of knee and lower leg. Calf is soft and nontender. Good pulses distally. Objective Labs Result Diagrams: 04/12/19 09:20 Discharge Plan Discharge Plan Patient Disposition: Home Discharge comment: Discharge home after cleared by PT. Scheduled to start physical therapy next week. Patient instructed to do range of motion of her knee as much as possible at home. Take aspirin 81 mg 1 b.i.d. times 30 days postop. Discharge Med Rec/Prescriptions Prescriptions: New acetaminophen 325 mg Tablet 975 mg PO TID Qty: 30 RF: 0 aspirin 81 mg Tablet,Delayed Release (Dr/Ec) 81 mg PO BID Qty: 60 RF: 0 hydromorphone 2 mg Tablet 2 mg PO Q4HR PRN (Reason: Pain, Severe (7-10)) Qty: 30 RF: 0 Continued metformin 500 mg Tablet 500 mg PO BID RF: 0 potassium chloride 10 mEq Capsule, Extended Release 10 meq PO DAILY RF: 0 ibuprofen 800 mg Tablet 800 mg PO BID RF: 0 amlodipine 5 mg Tablet 5 mg PO DAILY RF: 0 glimepiride 1 mg Tablet 1 mg PO QAM RF: 0 furosemide 20 mg Tablet 80 mg PO DAILY RF: 0 triamterene-hydrochlorothiazid 75-50 mg Tablet 1 tab PO DAILY RF: 0 losartan 100 mg Tablet 100 mg PO DAILY RF: 0 esomeprazole magnesium [Nexium] 20 mg Capsule,Delayed Release(Dr/Ec) 20 mg PO DAILY RF: 0 rosuvastatin 10 mg Tablet 10 mg PO BEDTIME RF: 0 fenofibrate 160 mg Tablet 160 mg PO DAILY RF: 0 cholecalciferol (vitamin D3) [Vitamin D3] 5,000 unit Tablet 5,000 unit PO BEDTIME RF: 0 gabapentin 800 mg Tablet 800 mg PO DAILY RF: 0 Follow up/Referrals: Macario Montaño DO [Primary Care Provider] - Quinn Rush MD [Physician] - Provider Discharge Instructions Diet: Diet as Tolerated Activity: Ambulate as tolerated. Use walker as needed. Do range of motion of right knee as much as possible. Cold/Heat Therapy: Cold pack to right knee as needed. Other treatments: You stated you have a consultation appointment with [facility] May 17 at 10:30 AM, check in at 10:15 AM Skin/Wound/Dressing Care Report to your healthcare provider any signs of infection, such as:: chills, fever, night sweats, increased pain, unusual drainage and unusual redness Dressing: Keep Aquacel dressing in place until postop visit. Visit Report/Discharge Packet Instructions: DI for Knee Replacement Discharge Data Primary Care Provider: Macario Montaño
--- NOTE | 2019-04-14 12:31 | PT.IPTN ---
Current Diagnoses Unilateral primary osteoarthritis, right knee (04/11/19) Surgery Performed Operation Date: 04/11/19 10:15 Actual Procedures p Total Knee Arthroplasty(Right) - Quinn Rush MD Physical Therapy Treatment Note M2 PT-IP Current Condition Start: 04/11/19 14:30 Freq: NEEDED Status: Active Protocol: Document 04/12/19 12:59 AW (Rec: 04/12/19 13:15 AW [email or web address]) Physical Therapy Current Condition Current Condition Evaluation Date 04/12/19 Treatment Diagnosis s/p R TKA, impaired transfers and gait Weight Bearing Status Weight Bearing Status Weight Bear as Tolerated M3 PT-IP Subjective Start: 04/11/19 14:30 Freq: NEEDED Status: Active Protocol: Document 04/14/19 09:20 GGD (Rec: 04/14/19 12:30 GGD [email or web address]) Subjective Physical Therapy Visit Type Type Treatment Note Visit Start Time 08:55 Visit Stop Time 09:20 Total Visit Minutes 25 Number of NET DEVELOPER ARCHITECT Visits 1 Physical Therapy Visit Comments Patient Comments Pt states her knee is feeling better. Therapy Pain Assessment Pain When Pain Assessed During Mobility Pain Present Pain Present Pain Reported Location Right Knee Intensity 8 Scale Used Numeric (1 - 10) Pain Management Techniques Apply Cold,Modification of Treatment,Re-positioning, Timing of Activity with Medications M4 PT-IP Mobility and Gait Start: 04/11/19 14:30 Freq: NEEDED Status: Active Protocol: Document 04/14/19 09:20 GGD (Rec: 04/14/19 12:30 GGD [email or web address]) PT-Bed Mobility Assessment Supine to Sit Supine to Sit Contact Guard Assistance, Bedrails Scooting Scooting to Edge of Bed Standby Assistance PT-Transfer Assessment Sit to and From Stand Sit to and from Stand Contact Guard Assistance Equipment Transfer Assistive Device Gait Belt,Front Wheeled Walker Orthotic/Prosthetic Devices or Brace: No Transfers Transfer Destination Chair,Toilet,Wheelchair Transfer Ability Level of Assist Contact Guard Assistance,1 Person Assistance,Use of Upper Extremities Gait Assessment Gait Gait Assistance Required: Contact Guard Assist,1 Person Assist Distance (Feet) 40 Assistive Devices Assistive Device Gait Belt,Front Wheeled Walker Orthotic/Prosthetic Devices or Brace: No Gait Deviations General Gait Pattern Antalgic,Decreased Stride Length,Decreased Feet Clearance,Flexed Trunk,Step-to Gait Factors Limiting Gait Function Factors Limiting Gait Function Decreased Activity Tolerance, Decreased Sensation,Limited Range of Motion,Pain,Poor Balance Stair Climbing Assessment Evaluation Level of Assist On Stairs Minimal Assistance,1 Person Assistance Devices Stair Climbing Assistive Devices Front Wheel Walker Technique/Endurance Stair Climbing Direction Ascend and Descend Stair Climbing Technique Step to Step Number of Steps Climbed 3 Stair Climbing Set # Repetitions (reps) 1 Comments Stair Climbing Comments Pt need mod cues for stairs with FWW. Pt need min A to stabilize FWW. M5 PT-IP Objective Assessments Start: 04/11/19 14:30 Freq: NEEDED Status: Active Protocol: Document 04/12/19 12:59 AW (Rec: 04/12/19 13:15 AW [email or web address]) Orientation Orientation/Cognition Level of Alertness Alert Orientation Name,Date,Place,Situation Language Function Ability No Deficits Noted Safety Awareness Understands Safety Issues Memory Description No Deficits Noted Gross Range of Motion Upper Extremity ROM Assessment Within Functional Limits Lower Extremity ROM Assessment Right Impaired Impairments painful R knee ROM Strength Upper Extremity Strength Assessment Within Functional Limits Lower Extremity Strength Assessment Right Impaired Coordination Assessment Gross Coordination Gross Coordination WNL Sensation Assessment Sensation Gross Sensation WNL Muscle Tone Muscle Tone WNL Yes M6 PT-IP Treatment Start: 04/11/19 14:30 Freq: NEEDED Status: Active Protocol: Document 04/14/19 09:20 GGD (Rec: 04/14/19 12:30 GGD [email or web address]) Physical Therapy Treatment Exercises Exercises Ankle Pumps,Quad Sets,Heel Slides,Seated Knee Flexion/ Extension Education Education Provided Safety M7 PT-IP Assessment and Plan Start: 04/11/19 14:30 Freq: NEEDED Status: Active Protocol: Document 04/14/19 09:20 GGD (Rec: 04/14/19 12:30 GGD [email or web address]) PT Summary Assessment and Plan Summary Assessment Summary Pt improving with mobility. She was safe with stair mobility. She had increase in C/O pain with mobility, but didn't limit her. Pt safe for home D/C when medically stable . Recommendations To Nursing Amount of Assist Needed 1 Person Assist Discharge Recommendations PT Discharge Recommendations Home with Assistance
--- NOTE | 2019-04-14 14:32 | PC.NURSE ---
1030 Patient was resting in bed, c/o throbbing pain in RLE, morning medications given. Dressing on RLE is CDI with scant drainage noted underneath. Patient voiding, reports BM this morning. Patient to continue working with PT. Ice pack given, patient repositioned. Reported feeling better. 1400 Patient up with aide for a shower, patient tolerated well. Alert and oriented, working on discharge. Patient is ready to go home, education given regarding pain control, increasing mobility and follow up appointments. IV removed. Patient tolerated well.
== END 2019-04-14 14:30 | disposition home or self-care (01) | DRG 470 ==
PROVIDERS: Admitting Provider Orthopaedic Surgery; Family Provider Family Medicine; PCP Family Medicine; Visit Provider Orthopaedic Surgery
PROC: 0SRC0JZ Replacement of Right Knee Joint with Synthetic Substitute, Open Approach (ICD-10-PCS; CPT 27447; principal; 2019-04-11 10:15)
DX: M17.11 Unilateral primary osteoarthritis, right knee (principal); Z68.41 Body mass index [BMI] 40.0-44.9, adult; J84.10 Pulmonary fibrosis, unspecified; E11.8 Type 2 diabetes mellitus with unspecified complications; E66.01 Morbid (severe) obesity due to excess calories; G47.33 Obstructive sleep apnea (adult) (pediatric); I10 Essential (primary) hypertension; E78.5 Hyperlipidemia, unspecified; M25.761 Osteophyte, right knee; F32.9 Major depressive disorder, single episode, unspecified; Z87.891 Personal history of nicotine dependence; Z79.84 Long term (current) use of oral hypoglycemic drugs
CPT/HCPCS: 36415; 73560; 82962; 85014; 85018; 94760; 94762; 97110; 97116; 97162; 97530; C1776; C9290; J1170; J2250; J2274; J2405; J2704; J3010

== ENCOUNTER 2019-07-25 12:28 | Inpatient (IN) | payer MEDICARE, SELFPAY ==
[2019-04-11 14:16] VITALS: BMI 44.9
[2019-07-15 13:14] VITALS: BMI 46.8
[2019-07-25] VITALS (11 sets, daily range): BP systolic 91–149; BP diastolic 47–88; PULSE 70–103; RESP 15–22; TEMP 36.6–36.9; O2SAT 93–98; BMI 44.1
--- NOTE | 2019-07-25 08:36 | DI.RAD.S_ITS ---
PROCEDURE: XR KNEE LT 1TO2V INDICATIONS: Status post left total knee arthroplasty TECHNIQUE: 2 view(s) of the knee acquired. COMPARISON: [facility], CR, XR KNEE ARTHRITIC SERIES RT, 05/25/2019, 10:46. [facility], CR, XR KNEE RT 1TO2V, 04/11/2019, 13:32. FINDINGS: Bones: Patient is status post knee joint arthroplasty. Hardware components are in expected positions. Visualized bony structures are intact. Soft tissues: Overlying postoperative changes are noted. IMPRESSION: Total knee arthroplasty with prosthesis in anatomic alignment. Dictated by: Gisel Chacko M.D. on 07/26/2019 at 9:33 Approved by: Gisel Chacko M.D. on 07/26/2019 at 9:34
[2019-07-25] MEDS: CELECOXIB 200 MG CAPSULE PO (13:36)
[2019-07-25] MEDS: PREGABALIN 75 MG CAPSULE PO (13:36)
[2019-07-25] MEDS: ACETAMINOPHEN 325 MG TABLET 975 MG PO ×2 (13:36→20:00)
--- NOTE | 2019-07-25 13:58 | SUR.PREOP ---
Patient verifying with this nurse regarding her allergy to PCN. Notified Pharmacy of need to provide different option for pre-op antibiotic.
--- NOTE | 2019-07-25 15:01 | PM.PREOP ---
Pre-operative Note Interval Note History & Physical reviewed/Exam performed by Physician: Yes Changes to H&P: No
--- NOTE | 2019-07-25 15:11 | P.OP_ITS ---
Operative Date/Time/Diagnoses Date of procedure: 07/25/19 Time of procedure: 17:25 Pre-op diagnosis: Left knee osteoarthritis Post-op diagnosis: same Procedure & Clinicians Procedure: Left total knee replacement Same procedure as scheduled: Yes Indications: The patient has had progressively worsening left knee pain with radiographic changes consistent with arthritis. Non-operative management has failed and the patient has requested total knee replacement. The risks, benefits and alternatives to surgery were discussed with the patient prior to proceeding. Risks discussed included, but were not limited to, failure to relieve pain, stiffness, infection, nerve damage, deep venous thrombosis, pulmonary embolism, stroke, coma, heart attack, permanent paralysis and , as well as the potential need for eventual revision of the prosthetic. Surgeon: Quinn Rush Kitchen Utility Associate: Estela Viramontes Click Yes if Unassisted: No Anesthesia Type: Local Operative Notes Closure Type: primary Specimen(s): none sent Prosthetic devices, grafts, tissues, transplants, or devices: Implants used in this procedure were manufactured by the [employer] and included the BCS II Journey total knee replacement with a size 4 Oxinium femur, a size 3 non porous tibial base plate, a 9 mm cross-linked polyethylene tibial insert and a 29 mm oval Nabila II patella. Applied: implant(s) Estimated Blood Loss (mL): 25 Blood products transfused: none Tourniquet time (min): 53 Procedure in detail: The patient was seen in the pre-operative area, where the left knee was identified as the operative site and this was marked with my initials. The patient received pre-operative antibiotics, and was taken to the operating room and placed on the operative table in the supine position. After satisfactory anesthesia, a full time babysitter out was performed. The left leg was encircled with a tourniquet about the proximal thigh, and the leg was prepared from the toes to the tourniquet with ChloroPrep in the usual fashion and draped through sterile drapes. The leg was elevated and exsanguinated with Eschmark bandage and the tourniquet inflated to 250 mmHg pressure. The knee was approached through an approximately 18 cm incision centered over the patella and carried into the knee through a medial parapatellar arthrotomy. The anterior osteophytes and soft tissues were removed. The rotational landmarks of Heather's line and the transepicondylar axis were marked on the femur with electrocautery, and intramedullary guide holes for the femur and tibia were created. The distal femoral cut was made in 6 degrees of valgus using the intramedullary guide at the primary cut setting. The proximal tibial cut was then made using the intramedullary guide, taking 9 mm of bone off the less invo lved side. The extension gap was checked and the rotation of the femoral component confirmed with the gap balancing blocks. The anterior, posterior and chamfer cuts were then made. The posterior osteophytes and soft tissues were then removed. The posterior capsule was injected with part of a mixture of 60 ml 0.25% Marcaine mixed with 20 ml Exparel and 4 mg of morphine for post-operative pain control. The remainder of this mixture was injected into the capsule and subcutaneous tissues during cement curing. The tibia was prepared with the rotation set by an extra medullary guide. Trial tibial and femoral components were then placed and the intercondylar notch cut through the femoral trial. Range of motion was 0-120 degrees, with good stability throughout the range. Further flexion was limited by the patient's body habitus. The patella was then cut to accommodate the patellar prosthetic. There was no need for a lateral release. The trials were then removed, and the femoral hole plugged with a bone plug. The bone was prepared with pulsatile lavage, and dried with a sponge. Cement was applied and the final prosthetics placed. Excess cement was removed during and after cement curing. After confirming there was no extruded cement posteriorly, the final tibial insert was placed. The knee was copiously irrigated and the tourniquet deflated. Hemostasis was obtained. The capsule was closed with interrupted # 2 polyester sutures. The subcutaneous layer was closed with 3-0 Vicryl, and the skin with a running 3-0 V-Lock suture and SteriStrips. An Aquacel Ag dressing was applied and the patient was taken to recovery having tolerated the procedure well. Complications: none Post-operative Condition: stable Disposition: PACU Plan for aftercare: The patient will be maintained on a standard total knee replacement protocol with weight bearing as tolerated. The patient will receive aspirin and sequential compression devices for DVT prophylaxis. The patient will be discharged home when safe for the home environment.
--- NOTE | 2019-07-25 15:15 | SUR.PREOP ---
Patient ambulated to bathroom witih steady gait.
[2019-07-25] MEDS: LACTATED RINGERS 1,000 ML 42 ML IV ×2 (15:20→17:09)
[2019-07-25] MEDS: CLINDAMYCIN 900 MG/50 ML PIGGYBACK 50 MG IV (15:42)
[2019-07-25] MEDS: TRANEXAMIC ACID 1,000 MG VIAL 1000 MG INJ ×2 (16:06→17:11)
--- NOTE | 2019-07-25 16:43 | SUR.OPER ---
Supine on padded OR bed. Pillow under head, arms secured on padded armboards <90 degree abduction. Safety belt across torso. Non-operative leg secured with tape over blanket over lower leg. Operative leg secured in DeMayo positioner.
[2019-07-25] MEDS: BUPIVACAINE 0.25% W/ EPI (PF) 10 ML VIAL 60 ML INJ (16:55)
[2019-07-25] MEDS: MORPHINE 4 MG/ML INJ INJ (16:59)
[2019-07-25] MEDS: BUPIVACAINE LIPOSOME 266 MG/20 ML VIAL INJ (17:00)
--- NOTE | 2019-07-25 18:18 | PC.NURSE ---
Kitty shift note: Patient arrived to room 213 S/P Left TKA scheduled. Awake,alert and pleasant. Received on RA, sat 96%. Oriented to room, environment, and plan of care. High Fall risk precautions initiated, call light within reach.
[2019-07-25] MEDS: LACTATED RINGERS 1,000 ML 125 ML IV (18:40)
[2019-07-25] MEDS: HYDROMORPHONE 0.5 MG INJ 0.2 MG IV ×4 (19:07→23:00)
[2019-07-25] MEDS: IBUPROFEN 400 MG TABLET 800 MG PO (20:00)
[2019-07-25] MEDS: ASPIRIN EC 81 MG TABLET PO (20:00)
[2019-07-25] MEDS: DOCUSATE 100 MG CAPSULE PO (20:00)
[2019-07-25] MEDS: METFORMIN HCL 500 MG TABLET PO (20:01)
[2019-07-25] MEDS: ROSUVASTATIN 10 MG TABLET PO (20:01)
--- NOTE | 2019-07-25 21:09 | PC.NURSE ---
Addendum entered by Julia Campos R.N. 07/25/19 21:11: Patient refusing Oxycodone ordered by Dr. Rush and refusing Hydrocodone ordered by Dr. Low due to allergies. Will continue other modalities, such as Tylenol, Motrin, ice pack, and repositioning. Original Note: Kitty shift note: Patient c/o pain to left knee, 10/10, unable to obtain relief with 0.2 mg of Dilaudid IV as ordered. Notified Dr. Low regarding pain control options, new order obtained for Hydrocodone.
[2019-07-25] MEDS: GABAPENTIN 400 MG CAPSULE 800 MG PO (21:25)
[2019-07-25] MEDS: hydrOXYzine pamoate 25 MG CAPSULE PO (23:54)
[2019-07-26] VITALS (7 sets, daily range): BP systolic 107–129; BP diastolic 67–77; PULSE 80–91; RESP 16–20; TEMP 36.6–37.1; O2SAT 94–98
--- NOTE | 2019-07-26 00:47 | PC.NURSE ---
Addendum entered by Gina Ordonez R.N. 07/26/19 06:12: Patient checked on at 0530 and again now and appears to be asleep. Addendum entered by Gina Ordonez R.N. 07/26/19 05:15: After receiving orders from Dr Low patient now medicated with po Dilaudid and additional dose of IV Dilaudid so bridge till po med takes effect. Addendum entered by Gina Ordonez R.N. 07/26/19 05:06: 0253 Patient still stating pain is not being controlled. States around 0230 pain again started to increase to current severity of 10/10 despite receiving IV Dilaudid + Oxycodone 1 hour ago. [facility] contacted and Dr Low paged. 0304 Medicated with IV Dilaudid for pain and informed patient RN was awaiting call back from MD. 0314 No return call from Dr Low so [facility] again contacted and stated I'm working on it. 0330 No return call from Dr Low so [facility] again contacted and stated they were following there protocol in contacting the paving contractor MD and if no answer on next go round, will call Dr Rush. Patient informed of continued attempts to contact MD. 0356 Still no return call from Dr Low so [facility] contacted and stated they were just going through protocol now. RN was placed on hold and then told that they attempted to contact Dr Rush (since Dr Low has still not responded) but the call went right to voice mail. Stated they would continue to run their protocol in trying to get MD to respond. 0359 Patient medicated with IV Dilaudid for 8/10 left knee, thigh, hip/buttock pain. 0415 Coordinator, Kasia, informed of patient's lack of pain control and continuing to get no response from MD. Addendum entered by Gian Ordonez R.N. 07/26/19 02:22: 0158 States pain is up to 10/10 and is now agreeable to trying Oxycodone prior to contacting MD for additional pain meds. Medicated with IV Dilaudid to bridge time before Oxycodone can take effect. Having burning pain in both left hip/buttock and knee; warm blanket applied and area massaged and now pain is down to 6/10. Addendum entered by Gina Ordonez R.N. 07/26/19 01:09: States pain is again up to 7/10 so medicated with additional IV Dilaudid Original Note: Patient is alert and oriented. Breath sounds CTA with RA sat of 95%. HRR. Denies nausea. BT present but hypoactive; denies flatus. Up to bathroom with 2 assists + walker and was able to urinate; has urgency and stress incontinence but denies dysura. Aquacel + donna wrap to left LE is CDI. Complained of 8/10 left knee/hip pain at 0000 and was medicated with IV Dilaudid + Vistaril and after being up to BSC and back to bed states pain is 6/10; ice packs applied. Is able to move self in bed. CMS intact to left LE although is unable to lift leg off bed. Wearing bilateral calf SCD's. 1+ edema bilateral feet/ankles. Fall risk score is moderate and bed alarm is activated.
[2019-07-26] MEDS: HYDROMORPHONE 0.5 MG INJ 0.2 MG IV ×5 (01:05→03:59)
[2019-07-26] MEDS: OXYCODONE IR 10 MG TABLET PO ×4 (01:58→14:03)
--- NOTE | 2019-07-26 04:45 | PC.NURSE ---
Dr. Low called back after being paged this night. Dr. Low gave verbal orders for PO Dilaudid 2mg Q3, and 0.3mg IV Dilaudid Q1.
[2019-07-26] MEDS: HYDROMORPHONE 2 MG TABLET PO ×5 (04:54→17:09)
[2019-07-26] MEDS: HYDROMORPHONE 0.5 MG INJ 0.3 MG IV ×2 (04:57→16:24)
[2019-07-26] MEDS: PANTOPRAZOLE 20 MG TABLET PO (04:58)
--- NOTE | 2019-07-26 07:12 | PM.PNPO.1 ---
Subjective Subjective Date Patient Seen: 07/26/19 Time Patient Seen: 07:12 Interval history: The patient reports she had severe difficulty with pain control overnight. She refused oxycodone and hydrocodone and eventually received an order for p.o. hydromorphone. This appears to have given her some relief. Exam Vital Signs (past 8 hours): - 07/26/19 00:00 07/26/19 05:07 Temperature 98.4 F 98.7 F Pulse Rate 89 81 Respiratory Rate 19 Blood Pressure 129/77 107/67 Pulse Oximetry 95 96 Oxygen Delivery Method Room Air Oxygen Flow Rate 0 Narrative Exam Narrative: Left knee wound is dressed with no drainage on the bandage. Calf is soft. Light touch and motion are intact in the left lower extremity. Assessment & Plan Post-op Postoperative Procedures: Procedures Operation Date: 07/25/19 14:45 Actual Procedures Side Surgeon p Total Knee Arthroplasty Left Quinn Rush MD Postoperative day: 1 Postoperative status: doing well and marginal pain control Postoperative status narrative: The patient is stable postoperative day 1 status post left total knee replacement. She did have difficulty with pain control overnight but this seems to be improving. Given the severity of her pain yesterday and her morbid obesity is unlikely she will be able to mobilize well enough to go home today. Postoperative plan: routine post-op care and ambulate Postoperative plan narrative: We will advance her with physical therapy. We will attempt to continue pain control with hydromorphone. Depending on progress today she may be discharged tomorrow. Time Spent With Patient Time with patient: less than 15 minutes
[2019-07-26] MEDS: FUROSEMIDE 40 MG TABLET 80 MG PO (08:36)
[2019-07-26] MEDS: POTASSIUM CHLORIDE 10 MEQ TAB PO (08:36)
[2019-07-26] MEDS: DOCUSATE 100 MG CAPSULE PO ×2 (08:36→21:06)
[2019-07-26] MEDS: LOSARTAN 50 MG TABLET 100 MG PO (08:37)
[2019-07-26] MEDS: AMLODIPINE 5 MG TABLET PO (08:37)
[2019-07-26] MEDS: IBUPROFEN 400 MG TABLET 800 MG PO (08:37)
[2019-07-26] MEDS: METFORMIN HCL 500 MG TABLET PO ×2 (08:37→21:06)
[2019-07-26] MEDS: hydrOXYzine pamoate 25 MG CAPSULE PO ×4 (08:37→23:38)
[2019-07-26] MEDS: ACETAMINOPHEN 325 MG TABLET 975 MG PO ×3 (08:37→21:07)
[2019-07-26] MEDS: ASPIRIN EC 81 MG TABLET PO ×2 (08:38→21:06)
[2019-07-26] MEDS: TRIAMTERENE/HCTZ 37.5/25 TABLET 1 CAP PO (08:38)
[2019-07-26] MEDS: SODIUM CHLORIDE 0.9% FLUSH 10 ML IV ×2 (08:39→23:42)
[2019-07-26 08:44] LABS: Hematocrit 30.7 % (36-46); Hemoglobin 10.6 g/dL (12.0-16.0)
[2019-07-26] MEDS: GLIMEPIRIDE 2 MG TABLET 1 MG PO (08:54)
--- NOTE | 2019-07-26 09:51 | PT.IIE ---
Current Diagnoses Unilateral primary osteoarthritis, left knee (07/25/19) Surgery Performed Operation Date: 07/25/19 14:45 Actual Procedures p Total Knee Arthroplasty(Left) - Quinn Rush MD Surgical History (Last Updated 04/06/19 @ 10:28 by Macey Wyatt RN) H/O: hysterectomy (Acute ~1988) History of bladder surgery (Acute ~2010) Hx of appendectomy (Acute) Hx of arthroscopy of left knee (Acute) Hx of arthroscopy of right knee (Acute) Hx of cholecystectomy (Acute) Hx of laminectomy (Acute) S/P foot surgery, right (Acute) Medical History (Last Updated 04/06/19 @ 10:28 by Macey Wyatt RN) Depression (Acute) Diabetes (Acute) Diabetic neuropathy (Acute) Edema (Acute) Enlarged liver (Acute) Former smoker (Acute) GERD (gastroesophageal reflux disease) (Acute) HLD (hyperlipidemia) (Acute) HTN (hypertension) (Acute) Migraines (Acute) JOÃO on CPAP (Acute) Pulmonary fibrosis (Acute) RLS (restless legs syndrome) (Acute) Physical Therapy Inpatient Evaluation/Re-Eval M1 PT/OT-IP Prior Functional Status Start: 07/26/19 10:56 Freq: NEEDED Status: Active Protocol: Document 07/26/19 09:51 AB (Rec: 07/26/19 11:29 AB [id number]) Medical Review Prior Functional Status Medical History Reviewed No Communication able to make needs known Mobility and Gait pt stated that she is independent with all mobilities and ambulation without AD Social History Household Members spouse Living Arrangements House Number of Floors (Floors) One Floor Number of Stairs To Enter/Railing? 3 steps to enter without rails : pt stated that she uses a standard walker for the stairs Home Environment Standard Height Toilet,Tub/ Shower Home Equipment Front Wheel Walker,Four Wheel Walker,Raised Toilet Seat w/ Armrests,Shower Seat with Backrest,Grab Bars In Shower Employment Status Retired Additional Social History Comment pt has standard walker and a tripod cane M2 PT-IP Current Condition Start: 07/26/19 10:56 Freq: NEEDED Status: Active Protocol: Document 07/26/19 09:51 AB (Rec: 07/26/19 11:29 AB [id number]) Physical Therapy Current Condition Current Condition Evaluation Date 07/26/19 Treatment Diagnosis s/p L TKR; difficulty in walking Onset Date 07/25/19 Weight Bearing Status Weight Bearing Status Weight Bear as Tolerated Allowed Weight Bearing Amount (enter % WBAT LLE or #) (%) M3 PT-IP Subjective Start: 07/26/19 10:56 Freq: NEEDED Status: Active Protocol: Document 07/26/19 09:51 AB (Rec: 07/26/19 11:29 AB [id number]) Subjective Physical Therapy Visit Type Type Initial Evaluation Visit Start Time 09:51 Visit Stop Time 10:25 Total Visit Minutes 34 Number of CHAR CONVEYOR TENDER Visits 0 Physical Therapy Visit Comments Patient Comments pt agreeable to do PT Therapy Pain Assessment Pain When Pain Assessed At Rest Pain Present Pain Present Pain Reported Location Right Knee Intensity 5 Scale Used 8/10 with mobility Description Spasm Pain Behaviors Crying Pain Management Techniques Modification of Treatment,Re- positioning,Timing of Activity with Medications M4 PT-IP Mobility and Gait Start: 07/26/19 10:56 Freq: NEEDED Status: Active Protocol: Document 07/26/19 09:51 AB (Rec: 07/26/19 11:29 AB [id number]) PT-Bed Mobility Assessment Supine to Sit Supine to Sit Moderate Assistance,1 Person Assistance Sit to Supine Sit to Supine Maximum Assistance,1 Person Assistance Scooting Scooting to Edge of Bed Standby Assistance PT-Transfer Assessment Sit to and From Stand Sit to and from Stand Moderate Assistance,Maximum Assistance,1 Person Assistance ,Use of Upper Extremities Equipment Transfer Assistive Device Gait Belt,Front Wheeled Walker Orthotic/Prosthetic Devices or Brace: No Transfers Transfer Destination Chair Transfer Technique ambulated using FWW Transfer Ability Level of Assist Maximum Assistance,1 Person Assistance,Use of Upper Extremities Comments Mobility Comments pt found sitting on EOB. agreed to do PT . completed sit to supine max A with assist to elevate LLE up the bed. pt c/o increase pain. completed heel slides in bed; supine to sit mod A and cues. completed sit to stand mod to max A and cues. attempted to ambulate in room but only took ~ 4 steps using FWW mod to max A and cues and has to sit down due to increase knee pain. positioned in chair. ice pack provided. call light and table placed within reach. left pt with spouse. Gait Assessment Gait Gait Assistance Required: Moderate Assistance,Maximum Assistance,1 Person Assist Distance (Feet) 2 Able to Maintain Weight Bearing Status Yes During Gait Assistive Devices Assistive Device Gait Belt,Front Wheeled Walker Orthotic/Prosthetic Devices or Brace: No Gait Deviations General Gait Pattern Antalgic,Decreased Stride Length,Decreased Feet Clearance Factors Limiting Gait Function Factors Limiting Gait Function Decreased Activity Tolerance, Decreased Sensation,Decreased Strength,Limited Range of Motion,Pain,Poor Balance,Poor Safety Awareness Comments Gait Comments pt presents with antalgic gait and (+) L knee buckling during ambulation requiring max A to stabilize and cues for quad activation. PT-Balance Assessment Sitting Balance and Reactions Static Sitting Balance Ability Good Dynamic Sitting Balance Ability Good Standing Balance and Reactions Static Standing Balance Ability Poor Dynamic Standing Balance Ability Poor Device Used FWW M5 PT-IP Objective Assessments Start: 07/26/19 10:56 Freq: NEEDED Status: Active Protocol: Document 07/26/19 09:51 AB (Rec: 07/26/19 11:29 AB [id number]) Orientation Orientation/Cognition Level of Alertness Alert Orientation Name,Place,Situation Language Function Ability No Deficits Noted Safety Awareness Understands Safety Issues Gross Range of Motion Lower Extremity ROM Assessment Left Impaired Impairments L knee flexion : ~ 60 deg L knee extension: -20 deg Strength Lower Extremity Strength Assessment Left Impaired Hip 3+/5 Knee 3-/5 Ankle 4-/5 Coordination Assessment Gross Coordination Gross Coordination WNL Sensation Assessment Sensation Gross Sensation WNL Muscle Tone Muscle Tone WNL Yes M6 PT-IP Treatment Start: 07/26/19 10:56 Freq: NEEDED Status: Active Protocol: Document 07/26/19 09:51 AB (Rec: 07/26/19 11:29 AB [id number]) Physical Therapy Treatment Exercises Exercises Quad Sets,Heel Slides,Seated Knee Flexion/Extension Education Education Provided Precautions,Weight Bearing Status,Post-Op Packet,Safety M7 PT-IP Assessment and Plan Start: 07/26/19 10:56 Freq: NEEDED Status: Active Protocol: Document 07/26/19 09:51 AB (Rec: 07/26/19 11:29 AB [id number]) PT Summary Assessment and Plan Potential Rehabilitation Potential Good Status of Condition at Evaluation Evolving Summary Impairments Pain,ROM,Strength,Balance, Coordination,Bed Mobility, Transfers,Gait,Activity Tolerance Assessment Summary pt requiring mod to max A with mobility and c/o increase pain on L knee. pt has 3 steps at home without rails and at this time is not appropriate to do stairs and has (+) L knee buckling during standing. pt plans to go home and spouse to assist her. d/ c plan depends on progress but at this time may require SNF rehab to improve strength and mobility. will continue to assess progress. Goals Bed Mobility Goal Standby Assistance Transfer Goal Standby Assistance Gait Goal Standby Assistance,Cane,Front Wheel Walker Gait Distance 100 Other Goals up/down 3 steps using standard walker min A Days to Meet Goals 5 Frequency of Treatment Frequency Of Treatment Twice a Day Treatment Plan Physical Therapy Treatment Plan Bed Mobility Training,Transfer Training,Gait Training, Therapeutic Exercise,Balance Retraining,Post Op Education, Discharge Planning,Hot or Cold Pack,Neuromuscular Re-ed, Coordination Retraining,Manual Therapy Other Recommendations and Next Treatment ambulation, caregiver training Focus and stair climbing if appropriate Recommendations To Nursing Amount of Assist Needed 1 Person Assist Discharge Recommendations PT Discharge Recommendations Home with 24/7 Assist,Home Health,SNF Rehab,Outpatient PT Other Discharge Recommendations depending on progress: SNF vs home 24/7 assist/HHPT/OP PT
[2019-07-26] MEDS: INSULIN ASPART 100 UNIT/ML INSULN PEN SUBCUT (12:04)
--- NOTE | 2019-07-26 13:17 | OT.IP.EVAL ---
Current Diagnoses Unilateral primary osteoarthritis, left knee (07/25/19) Surgery Performed Operation Date: 07/25/19 14:45 Actual Procedures p Total Knee Arthroplasty(Left) - Quinn Rush MD Past Medical History (Last Updated 04/06/19 @ 10:28 by Macey Wyatt, RN) Depression (Acute) Diabetes (Acute) Diabetic neuropathy (Acute) Edema (Acute) Enlarged liver (Acute) Former smoker (Acute) GERD (gastroesophageal reflux disease) (Acute) HLD (hyperlipidemia) (Acute) HTN (hypertension) (Acute) Migraines (Acute) JOÃO on CPAP (Acute) Pulmonary fibrosis (Acute) RLS (restless legs syndrome) (Acute) Surgical History (Last Updated 04/06/19 @ 10:28 by Macey Wyatt RN) H/O: hysterectomy (Acute ~1988) History of bladder surgery (Acute ~2010) Hx of appendectomy (Acute) Hx of arthroscopy of left knee (Acute) Hx of arthroscopy of right knee (Acute) Hx of cholecystectomy (Acute) Hx of laminectomy (Acute) S/P foot surgery, right (Acute) Occupational Therapy Inpatient Evaluation/Re-Eval M1 PT/OT-IP Prior Functional Status Start: 07/26/19 16:32 Freq: NEEDED Status: Active Protocol: Document 07/26/19 13:17 [facility] (Rec: 07/26/19 16:53 [facility] [id number]) Medical Review Prior Functional Status Medical History Reviewed No Communication able to make needs known Mobility and Gait pt stated that she is independent with all mobilities and ambulation without AD Activities of Daily Living and IADL's Pt states able to do all Adl and IADl needs on her own. Social History Household Members spouse Living Arrangements House Number of Floors (Floors) One Floor Number of Stairs To Enter/Railing? 3 steps to enter without rails : pt stated that she uses a standard walker for the stairs Home Environment Standard Height Toilet,Tub/ Shower Home Equipment Front Wheel Walker,Four Wheel Walker,Raised Toilet Seat w/ Armrests,Shower Seat with Backrest,Grab Bars In Shower Employment Status Retired Additional Social History Comment pt has standard walker and a tripod cane. Pt states has a step to get up to her high platform bed. M2 OT-IP Current Condition Start: 07/26/19 16:32 Freq: Status: Active Protocol: Document 07/26/19 13:17 [facility] (Rec: 07/26/19 16:53 [facility] [id number]) Occupational Therapy Current Condition Current Condition Evaluation Date 07/26/19 Treatment Diagnosis S/P L TKA Diagnosis Onset Date 07/25/19 Weight Bearing Status Weight Bearing Status Weight Bear as Tolerated M3 OT- IP Subjective and Pain Start: 07/26/19 16:32 Freq: Status: Active Protocol: Document 07/26/19 13:17 [facility] (Rec: 07/26/19 16:53 [facility] [id number]) OT- Subjective Occupational Therapy Visit Type Type Initial Evaluation Visit Start Time 13:17 Visit Stop Time 14:27 Total Visit Minutes 50 Occupational Therapy Visit Comments Patient Comments Pt cooperative and willing to do OT eval. Pt's present at the end of the session. Patient/Caregiver Goals Pt wanting to go home when medically stable. Pt not wanting to go to skilled rehab . OT Pain Assessment Pain When Pain Assessed At Rest Pain Present Pain Present Pain Reported Location right knee/hip/buttock Intensity 5 Scale Used Numeric (1 - 10) M4 OT- IP ADL's Start: 07/26/19 16:32 Freq: Status: Active Protocol: Document 07/26/19 13:17 [facility] (Rec: 07/26/19 16:53 [facility] [id number]) OT [id number] Comments OT Self-Feeding Comments Not at meal time. OT ADL-Grooming Comments OT Grooming Comments Pt states did earlier. OT ADL-Dressing General Eval Lower Body Dressing Ability Standby Assistance,Maximum Assistance Areas Needing Assistance Socks Assistive Devices Dressing Assistive Devices Home Weatherizing Worker,Sock Aid Comments OT Dressing Comments Educated pt on use of supervisory aide and sock aid for LB dressing needs. Pt able to demonstrate good understanding and safety for socks at this time. OT ADL-Toileting General Evaluation Toileting Ability Standby Assistance,Maximum Assistance Devices Toileting Assistive Devices Commode Comments OT Toileting Comments At this time, pt not wearing a brief, but would have needed MAX A for assist if having to manage brief needs. Pt would benefit from BSC as having to use the bathroom often. OT ADL-Bathing Comments OT Bathing Comments Not ready at this time. M5 OT- IP IADL's Start: 07/26/19 16:32 Freq: Status: Active Protocol: Document 07/26/19 13:17 [facility] (Rec: 07/26/19 16:53 [facility] [id number]) OT-Instrumental Activities of Daily Living Home Safety Awareness Awareness of Need for Assistance at Home Good Awareness Medication Management Medication Management Caregiver Provides Supervision Money Management Money Management Caregiver Provides Assistance Meal Preparation Meal Preparation Comments Pt's to be able to assist for needs. M6 OT- IP Functional Cognition Start: 07/26/19 16:32 Freq: Status: Active Protocol: Document 07/26/19 13:17 [facility] (Rec: 07/26/19 16:53 [facility] [id number]) Cognitive Factors Limiting Selfcare Function Cognitive Ability Level of Alertness Alert Patient Orientation Name,Age,Birthday,Month,Date, Year,Day of Week,Place, Situation Attention Span Ability Capable of Focused Attention, Capable of Sustained Attention Ability to Follow Commands Able to Follow Multi-Step Commands Memory Description No Deficits Noted Cognitive Comments Cognitive Assessment Comments At this time pt does not appear to have any cognitive deficits. OT- Vision and Hearing OT- Hearing Assessment OT- Hearing Assessment WFL OT- Vision Assessment Visual Acuity Glasses All The Time Vision Assessment Comments Pt states recently broke her glasses and have her old glasses from before but not a current prescription. M7 OT- IP Mobility and Balance Start: 07/26/19 16:32 Freq: Status: Active Protocol: Document 07/26/19 13:17 [facility] (Rec: 07/26/19 16:53 [facility] [id number]) OT- Bed Mobility Assessment Sit to Supine Sit to Supine Assist Minimal Assistance OT-Transfer Assessment Sit to and From Stand Sit to and from Stand Moderate Assistance,Maximum Assistance Transfers Transfer Ability Moderate Assistance Technique Transfer Destination Bed,Bedside Commode,Chair Transfer Technique Stand Step Pivot Devices Transfer Assistive Devices Gait Belt,Front Wheeled Walker Comments Mobility Comments Pt needing MAX A to stand from lower surfaces. Once on her feet heavy use of BUE to push down on the FWW. MODA to help with balance with FWW for transfers. OT- Balance Assessment Sitting Balance and Reactions Static Sitting Balance Ability Normal Dynamic Sitting Balance Ability Normal Standing Balance and Reactions Static Standing Balance Ability Fair M8 OT- IP Objective Assessments Start: 07/26/19 16:32 Freq: Status: Active Protocol: Document 07/26/19 13:17 [facility] (Rec: 07/26/19 16:53 [facility] [id number]) OT Gross Range of Motion Upper Extremity Range of Motion Assessment Within Functional Limits OT Strength Upper Extremity Strength Assessment Within Functional Limits M9 OT- IP Assessment and Plan Start: 07/26/19 16:32 Freq: Status: Active Protocol: Document 07/26/19 13:17 [facility] (Rec: 07/26/19 16:53 [facility] [id number]) OT Summary Assessment and Plan Potential Rehabilitation Potential Good Analytic Complexity at Evaluation Low Summary OT Impairments Pain,Balance,Functional Mobility,Grooming,Dressing, Toileting,Bathing,Toilet Transfers,Shower Transfers Progress Towards Goals Progressing Toward Goals Assessment Summary Pt low complexity and main barriers are steps and now having to rely more on her RLE which she just completed RTKA on 04/11/19. Pt has a supportive who will be able to assist for all needs at home. Suggested for pt to get a BSC at home. Goals Grooming Goal Independent Dressing Goal Standby Assistance Toileting Goal Independent Bathing Goal Minimal Assistance Toilet Transfer Goal Standby Assistance Shower Transfer Goal Minimal Assistance Patient/Caregiver Education Goal Caregiver Independent Assisting Patient Days to Meet Goals 5 Frequency of Treatment Frequency Of Treatment Once a Day Treatment Plan OT Treatment Plan ADL Training,Functional Mobility,Patient/Family Education,Discharge Planning Other Treatment Recommendations and Next caregiver training, shower Treatment Focus Discharge Recommendations OT Discharge Recommendations Home with Assistance,Home Health,SNF Rehab Other Discharge Recommendations Pending mobility of steps and caregiver training either skilled rehab versus home with and home health. Pt refusing to go to skilled rehab. Home Equipment Needs BSC, sock aid issued
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
[2019-07-26] MEDS: CARISOPRODOL 350 MG TABLET PO (19:47)
[2019-07-26] MEDS: KETOROLAC 15 MG/ML VIAL 10 MG IV (19:47)
[2019-07-26] MEDS: HYDROMORPHONE 4 MG TABLET PO ×2 (20:30→23:38)
[2019-07-26] MEDS: ROSUVASTATIN 10 MG TABLET PO (21:06)
[2019-07-26] MEDS: GABAPENTIN 400 MG CAPSULE 800 MG PO (21:06)
[2019-07-26] MEDS: CHOLECALCIFEROL (VITAMIN D3) 5,000 UNIT TABLET 5000 UNIT PO (21:06)
[2019-07-27] MEDS: HYDROMORPHONE 4 MG TABLET PO ×5 (02:41→15:43)
[2019-07-27 06:04] VITALS: BP 124/77; PULSE 91; RESP 20; TEMP 36.4; O2SAT 92
[2019-07-27] MEDS: PANTOPRAZOLE 20 MG TABLET PO (06:20)
[2019-07-27 07:00] VITALS: BP 119/72; PULSE 87; RESP 18; TEMP 36.4; O2SAT 94
[2019-07-27] MEDS: GLIMEPIRIDE 2 MG TABLET 1 MG PO (08:38)
[2019-07-27] MEDS: POTASSIUM CHLORIDE 10 MEQ TAB PO (08:39)
[2019-07-27] MEDS: FUROSEMIDE 40 MG TABLET 80 MG PO (08:39)
[2019-07-27] MEDS: TRIAMTERENE/HCTZ 37.5/25 TABLET 1 CAP PO (08:39)
[2019-07-27] MEDS: AMLODIPINE 5 MG TABLET PO (08:39)
[2019-07-27] MEDS: ASPIRIN EC 81 MG TABLET PO (08:39)
[2019-07-27] MEDS: DOCUSATE 100 MG CAPSULE PO (08:39)
[2019-07-27] MEDS: METFORMIN HCL 500 MG TABLET PO (08:39)
[2019-07-27] MEDS: LOSARTAN 50 MG TABLET 100 MG PO (08:39)
[2019-07-27] MEDS: ACETAMINOPHEN 325 MG TABLET 975 MG PO ×2 (08:39→15:43)
[2019-07-27] MEDS: SODIUM CHLORIDE 0.9% FLUSH 10 ML IV (09:17)
[2019-07-27 10:00] VITALS: PULSE 92; RESP 12; O2SAT 91
--- NOTE | 2019-07-27 10:15 | PC.NURSE ---
Assess: Pt is awake and sitting up in chair for breakfast. Given 4mg of dilaudid with good pain control. She does get groggy with this medication, but immediately wakes up and is aware of her surrounds and is A&Ox3. Dressing to knee with aquacel, cdi. Pt is resting up in her chair and her will be back shortly. CMS wnl and ppx2 to extremity.
--- NOTE | 2019-07-27 10:19 | PM.DS.1 ---
History of Present Illness History of Present Illness Date Patient Seen: 07/27/19 Time Patient Seen: 10:19 Chief complaint: [id number] Narrative: The history and physical is contained in the chart and a previously completed note. Please refer to that note for this information. Discharge Providers Provider Date of admission: 07/25/19 12:28 Discharge Date: 07/27/19 Primary care physician: Macario Montaño DO Consults: 07/25/19 08:36 Consult to Anesthesiology Routine Comment: Consulting Provider: Anesthesiologist Reason for consultation: Regional block for post operative pain control 07/25/19 13:53 Consult to Respiratory Therapy Evaluate & Treat Comment: Physician Instructions: Evaluate and treat 07/25/19 18:16 Consult to Discharge Planning Routine Comment: Consult to Physical Therapy Evaluate & Treat Comment: Physician Instructions: postop TKA protocol 07/26/19 09:47 Consult to Occupational Therapy Evaluate & Treat Comment: Eval in case SNF needed insurance will require OT Physician Instructions: Evaluate and treat Discharge provider: Quinn Rush MD Summary Hospital Course Discharge Diagnosis: 1. Left knee osteoarthritis 2. Post hemorrhagic anemia 3. Diabetes mellitus 4. Morbid obesity Hospital Course: The patient was admitted to the hospital and taken directly to the operating room on July 25, 2019 where she underwent a left total knee replacement without complication. She had poor pain control for the 1st 24 hours. This seemed to improve on hydromorphone. She made slow progress with physical therapy in at the time of this dictation on postoperative day 2 it is likely she will be able to go home later in the day. Status at Discharge Cognitive/behavioral status at discharge: oriented Functional status at discharge: uses cane/walker Overall status at discharge: patient is progressing back to baseline Time Spent with Patient Time spent: Less than 30 minutes Exam Vital Signs (past 8 hours): - 07/27/19 06:04 07/27/19 07:00 Temperature 97.6 F 97.6 F Pulse Rate 91 H 87 Respiratory Rate 20 18 Blood Pressure 124/77 119/72 Pulse Oximetry 92 94 Oxygen Delivery Method Room Air Oxygen Flow Rate 0 Narrative Exam Narrative: Left knee wound is dressed with no drainage on the bandage. Calf is soft. Light touch and motion are intact in the left lower extremity. Objective Labs Result Diagrams: 07/26/19 08:15 Discharge Plan Discharge Plan Patient Disposition: Home Discharge orders & Medications Prescriptions: New aspirin 81 mg Tablet,Delayed Release (Dr/Ec) 81 mg PO BID 42 Days Qty: 84 RF: 0 hydromorphone 2 mg Tablet 2 mg PO Q4H PRN (Reason: Pain, Severe (7-10)) Qty: 40 RF: 0 hydroxyzine pamoate 25 mg Capsule 25 mg PO Q4HR PRN (Reason: Nausea) Qty: 40 RF: 0 Continued metformin 500 mg Tablet 500 mg PO BID RF: 0 potassium chloride 10 mEq Capsule, Extended Release 10 meq PO DAILY RF: 0 ibuprofen 800 mg Tablet 800 mg PO BID RF: 0 amlodipine 5 mg Tablet 5 mg PO DAILY RF: 0 glimepiride 1 mg Tablet 1 mg PO QAM RF: 0 furosemide 20 mg Tablet 80 mg PO DAILY RF: 0 triamterene-hydrochlorothiazid 75-50 mg Tablet 1 tab PO DAILY RF: 0 losartan 100 mg Tablet 100 mg PO DAILY RF: 0 esomeprazole magnesium [Nexium] 20 mg Capsule,Delayed Release(Dr/Ec) 20 mg PO DAILY RF: 0 rosuvastatin 10 mg Tablet 10 mg PO BEDTIME RF: 0 cholecalciferol (vitamin D3) [Vitamin D3] 5,000 unit Tablet 5,000 unit PO BEDTIME RF: 0 gabapentin 800 mg Tablet 800 mg PO DAILY RF: 0 acetaminophen 325 mg Tablet 975 mg PO TID Qty: 30 RF: 0 Discontinued aspirin 81 mg Tablet,Delayed Release (Dr/Ec) 81 mg PO DAILY RF: 0 Follow up/Referrals: Macario Montaño DO [Primary Care Provider] - Quinn Rush MD [Physician] - 3-5 Days Discharge Health Status Multidrug resistant organism: No MDRO Diet/Activity/Treatments Diet: Diet as Tolerated and Carb-consistent/Diabetic Activity: You may bear weight as tolerated on your left leg. Cold/Heat Therapy: Apply ice to the left knee as needed for 15 minutes every hour for pain control. Skin/Wound/Dressing Care Report to your healthcare provider any signs of infection, such as:: chills, fever, night sweats, increased pain, unusual drainage and unusual redness Dressing: Keep the dressing intact until your follow-up appointment. You may shower with the dressing in place. If the central strip of the dressing becomes saturated with either water or blood, please call the office. Visit Report/Discharge Packet Instructions: DI for Knee Replacement, DI for Prescription Opioid Use Stand Alone Forms: Surgery Discharge Discharge Data Primary Care Provider: Macario Montaño
--- NOTE | 2019-07-27 11:05 | PT.IPTN ---
Current Diagnoses Unilateral primary osteoarthritis, left knee (07/25/19) Surgery Performed Operation Date: 07/25/19 14:45 Actual Procedures p Total Knee Arthroplasty(Left) - Quinn Rush MD Physical Therapy Treatment Note M2 PT-IP Current Condition Start: 07/26/19 10:56 Freq: NEEDED Status: Active Protocol: Document 07/26/19 09:51 AB (Rec: 07/26/19 11:29 AB [id number]) Physical Therapy Current Condition Current Condition Evaluation Date 07/26/19 Treatment Diagnosis s/p L TKR; difficulty in walking Onset Date 07/25/19 Weight Bearing Status Weight Bearing Status Weight Bear as Tolerated Allowed Weight Bearing Amount (enter % WBAT LLE or #) (%) M3 PT-IP Subjective Start: 07/26/19 10:56 Freq: NEEDED Status: Active Protocol: Document 07/27/19 10:13 SP (Rec: 07/27/19 11:38 SP [id number]) Subjective Physical Therapy Visit Type Type Treatment Note Visit Start Time 10:13 Visit Stop Time 11:05 Total Visit Minutes 52 Notes Pt willing to work with PT, spouse arrived during tx. Number of MARKER MACHINE Visits 1 Physical Therapy Visit Comments Patient Comments Pt willing to work with PT. Stated feels like needs to stretch L knee, very stiff. Therapy Pain Assessment Pain When Pain Assessed At Rest Pain Present Pain Present Pain Reported Location right knee/hip/buttock Intensity 5 Scale Used 5/10 at rest, 8-9/10 during mobility Description Pressure,Pulling,Tightness Pain Behaviors Facial Grimacing,Holding Area, Restlessness Pain Management Techniques Apply Cold,Re-positioning, Timing of Activity with Medications M4 PT-IP Mobility and Gait Start: 07/26/19 10:56 Freq: NEEDED Status: Active Protocol: Document 07/27/19 10:13 SP (Rec: 07/27/19 11:38 SP [id number]) PT-Bed Mobility Assessment Sit to Supine Sit to Supine Minimal Assistance,1 Person Assistance PT-Transfer Assessment Sit to and From Stand Sit to and from Stand Minimal Assistance,1 Person Assistance,Use of Upper Extremities Equipment Transfer Assistive Device Gait Belt,Front Wheeled Walker Orthotic/Prosthetic Devices or Brace: No Transfers Transfer Destination Bed,Bedside Commode Transfer Technique ambulated using FWW Transfer Ability Level of Assist Contact Guard Assistance, Minimal Assistance,1 Person Assistance,Use of Upper Extremities Comments Mobility Comments Pt was up in chair when arrived. Pt agreeable to PT, stated L knee feels like needs to be stretched with tightness, pressure behind the L knee. Educated patient importance of getting up and moving around to improve circulation, ROM, strengthening by stand WB mobility. Pt required [place] to complete sit to stand from the chair with heavy use of BUE push through chair arms to stand using fWW. Cued for even WB through BLE and quad activation during LLE WB to prevent risk for buckling, then repeated alternating step forward back pre gait assessment, improved WB through LLE as reps progressed , heavy WB on FWW through BUE. Pt was able to complete walking chair to door and back to bed side commode. Pt's L knee buckled x3 durign gait requiring Mod A of 1 to recover and able to use BUE for self recovery as well. Max cuing for quad facilitation during gait. Pt was able to complete stand<> sit form bed side commode CGA and personal hygiene herself. Pt was ableto complete sitting>supine into bed with instruction of use of gait belt on L foot for increased independence unable do herself needing therapist Min suport for operative LLE into bed and reposition to center LLE in bed. Patient was able to lateral scoot her trunk in bed using bridge RLE herself. All needs within reach and bed alarm armed with in room. Gait Assessment Gait Gait Assistance Required: Contact Guard Assist,Minimum Assistance,1 Person Assist Distance (Feet) 30 Able to Maintain Weight Bearing Status Yes During Gait Assistive Devices Assistive Device Gait Belt,Front Wheeled Walker Orthotic/Prosthetic Devices or Brace: No Gait Deviations General Gait Pattern Antalgic,Decreased Stride Length,Decreased Feet Clearance,Step-to Gait Factors Limiting Gait Function Factors Limiting Gait Function Decreased Activity Tolerance, Decreased Sensation,Decreased Strength,Limited Range of Motion,Pain,Poor Balance,Poor Safety Awareness Comments Gait Comments Pt was able to ambulate using FWW CGA and Min A during experienced L knee buckling x3 during gait for recovery and BUE heavy WB on FWW bed side chair to door and back to bed side commode (end of her bed). Pt's L knee is unsteady during gait, Max cuing provided L quad contraction and awareness of knee extension during WB each step. Pt walked 15 ft, 10 ft , 5 ft in room. Stair Climbing Assessment Comments Stair Climbing Comments Not assessed due to L knee buckling during short distance gait inroom and heavy WB BUE. Trial platform steps x3 in afternoon to assimulate patterning does at home 3 step no HR use of standard walker on step that sets over step at home. PT-Balance Assessment Sitting Balance and Reactions Static Sitting Balance Ability Normal Dynamic Sitting Balance Ability Normal Standing Balance and Reactions Static Standing Balance Ability Fair Dynamic Standing Balance Ability Poor Device Used FWW M5 PT-IP Objective Assessments Start: 07/26/19 10:56 Freq: NEEDED Status: Active Protocol: Document 07/26/19 09:51 AB (Rec: 07/26/19 11:29 AB [id number]) Orientation Orientation/Cognition Level of Alertness Alert Orientation Name,Place,Situation Language Function Ability No Deficits Noted Safety Awareness Understands Safety Issues Gross Range of Motion Lower Extremity ROM Assessment Left Impaired Impairments L knee flexion : ~ 60 deg L knee extension: -20 deg Strength Lower Extremity Strength Assessment Left Impaired Hip 3+/5 Knee 3-/5 Ankle 4-/5 Coordination Assessment Gross Coordination Gross Coordination WNL Sensation Assessment Sensation Gross Sensation WNL Muscle Tone Muscle Tone WNL Yes M6 PT-IP Treatment Start: 07/26/19 10:56 Freq: NEEDED Status: Active Protocol: Document 07/27/19 10:13 SP (Rec: 07/27/19 11:38 SP [id number]) Physical Therapy Treatment Exercises Exercises Ankle Pumps,Quad Sets,Heel Slides,Passive Knee Extension Hang Education Education Provided Precautions,Weight Bearing Status,Post-Op Packet,Safety Other Treatments Other Treatment Performed Pt tolerated and reviewed post op exercises seated and supine. Pillow under calf and ankle when left to provide knee extension ROM. MMT quad isometric Poor - in supine. Not safe to trial stair mgt during am tx. M7 PT-IP Assessment and Plan Start: 07/26/19 10:56 Freq: NEEDED Status: Active Protocol: Document 07/27/19 10:13 SP (Rec: 07/27/19 11:38 SP [id number]) PT Summary Assessment and Plan Potential Rehabilitation Potential Good Status of Condition at Evaluation Evolving Summary Impairments Pain,ROM,Strength,Balance, Coordination,Bed Mobility, Transfers,Gait,Activity Tolerance Assessment Summary Pt improved her bed mobility, transfers, and gait this session. She shows very good effort with all activities and is highly motivated to return home and avoid SNF rehab. PT recommendation will continue to be refined as informed by pt progress over the next session, including stair assessment. SNF rehab can not be ruled out at this time. Goals Bed Mobility Goal Standby Assistance Transfer Goal Standby Assistance Gait Goal Standby Assistance,Cane,Front Wheel Walker Gait Distance 100 Other Goals up/down 3 steps using standard walker min A Days to Meet Goals 5 Frequency of Treatment Frequency Of Treatment Twice a Day Treatment Plan Physical Therapy Treatment Plan Bed Mobility Training,Transfer Training,Gait Training, Therapeutic Exercise,Balance Retraining,Post Op Education, Discharge Planning,Hot or Cold Pack,Neuromuscular Re-ed, Coordination Retraining,Manual Therapy Other Recommendations and Next Treatment ambulation, caregiver training Focus and stair climbing x3 steps in pm session. Recommendations To Nursing Amount of Assist Needed 1 Person Assist Discharge Recommendations PT Discharge Recommendations Home with 24/7 Assist,Home Health,SNF Rehab,Outpatient PT Other Discharge Recommendations depending on progress: SNF vs home 24/7 assist/HHPT/OP PT
[2019-07-27] MEDS: INSULIN ASPART 100 UNIT/ML INSULN PEN SUBCUT (11:33)
--- NOTE | 2019-07-27 11:38 | CM.IDA ---
Discharge Planning/Care Management CM Discharge Assessment Start: 07/27/19 11:12 Freq: Status: Active Protocol: Document 07/27/19 11:12 OSIEL (Rec: 07/27/19 11:38 OSIEL [id number]) Discharge Planning Assessment Assigned [employer] Handler ARMANDO Quintero DPOA/Assigned Designee Name Deacon Madrid, spouse Contact Information [phone] Advance Directives? No History Provided By Patient,Family Member,Medical Record Prior Living Arrangements House Household Members spouse Independent with ADL's Yes Is patient alert and oriented? Yes Patient/Family Preference OP PT Therapy Barriers to Discharge No Comment Pt is POD 2 from left knee surgery w/ Dr Rush. PCP: Macario Montaño Payer: [employer] (Disability) Met w/pt this morning, she explained that Dr Rush felt she was ready to DC home today but pt feeling apprehensive d /t slow post operative progress and pain mngmt issues . Pt plans to DC home w/spouse /family to assist as needed w/ outpt PT f/u. No barriers identified today to safe return home as expected. ARMANDO Cavazos Discharge Plan Home Transportation Arrangement Spouse Referrals Initiated None needed Additional Comment STEWARD/STEWARDESS available if DC needs or concerns arise Whiteboard Updated in Patient Room with Yes name and ext. # of Forklift Material Handler
--- NOTE | 2019-07-27 14:27 | PT.IPTN ---
Current Diagnoses Unilateral primary osteoarthritis, left knee (07/25/19) Surgery Performed Operation Date: 07/25/19 14:45 Actual Procedures p Total Knee Arthroplasty(Left) - Quinn Rush MD Physical Therapy Treatment Note M2 PT-IP Current Condition Start: 07/26/19 10:56 Freq: NEEDED Status: Active Protocol: Document 07/26/19 09:51 AB (Rec: 07/26/19 11:29 AB [id number]) Physical Therapy Current Condition Current Condition Evaluation Date 07/26/19 Treatment Diagnosis s/p L TKR; difficulty in walking Onset Date 07/25/19 Weight Bearing Status Weight Bearing Status Weight Bear as Tolerated Allowed Weight Bearing Amount (enter % WBAT LLE or #) (%) M3 PT-IP Subjective Start: 07/26/19 10:56 Freq: NEEDED Status: Active Protocol: Document 07/27/19 13:46 SP (Rec: 07/27/19 14:58 SP [id number]) Subjective Physical Therapy Visit Type Type Treatment Note Visit Start Time 13:46 Visit Stop Time 14:27 Total Visit Minutes 41 Notes Pt's spouse completed caregiver training. Physical Therapy Visit Comments Patient Comments Pt willing to work with PT and complete step management to go home. Therapy Pain Assessment Pain When Pain Assessed At Rest Pain Present Pain Present Pain Reported Location right knee/hip/buttock Intensity 5 Scale Used 5/10 at rest, 8/10 during mobility Description Pressure,Spasm,Tightness, Throbbing Pain Behaviors Facial Grimacing,Holding Area, Restlessness Pain Management Techniques Apply Cold,Re-positioning, Timing of Activity with Medications M4 PT-IP Mobility and Gait Start: 07/26/19 10:56 Freq: NEEDED Status: Active Protocol: Document 07/27/19 13:46 SP (Rec: 07/27/19 14:58 SP [id number]) PT-Transfer Assessment Sit to and From Stand Sit to and from Stand Contact Guard Assistance,1 Person Assistance,Use of Upper Extremities Equipment Transfer Assistive Device Gait Belt,Front Wheeled Walker Orthotic/Prosthetic Devices or Brace: No Transfers Transfer Destination Chair,Toilet,Wheelchair Transfer Technique step pivot, ambulated FWW Transfer Ability Level of Assist Contact Guard Assistance,1 Person Assistance,Use of Upper Extremities Comments Mobility Comments Pt was up in the chair when arrived, present. Pt was able to complete sit to stand from chair, toilet, w/c CGA with heavy WB BUE upon standing and sitting with step pivot trasfer with use of FWW. As number transfers ( approx 6) progressed patient hand transitioning not as heavy to complete the upright stand position able to bear weight through LLE more. Pt able to complete self hygiene during toileting. Pt was sitting in chair with all needs within reach when left. Gait Assessment Gait Gait Assistance Required: Contact Guard Assist,1 Person Assist Distance (Feet) 50 Able to Maintain Weight Bearing Status Yes During Gait Assistive Devices Assistive Device Gait Belt,Front Wheeled Walker Orthotic/Prosthetic Devices or Brace: No Gait Deviations General Gait Pattern Antalgic,Decreased Stride Length,Decreased Feet Clearance Factors Limiting Gait Function Factors Limiting Gait Function Decreased Activity Tolerance, Decreased Sensation,Decreased Strength,Limited Range of Motion,Pain,Poor Balance Comments Gait Comments Pt was able to ambulate chair to toilet using FWW CGA. Also increased distance after step managment approx 50 ft before needing to sit due to decrease activity and endurance level, 1 instance of L knee buckle when back in the room during turning to sit down but able to self recover, cues for L knee extension during WB and support provided by during caregiver training. Stair Climbing Assessment Evaluation Level of Assist On Stairs Minimal Assistance,1 Person Assistance Devices Stair Climbing Assistive Devices Front Wheel Walker Technique/Endurance Stair Climbing Direction Ascend and Descend Stair Climbing Technique Step to Step Number of Steps Climbed 1 Stair Climbing Set # Repetitions (reps) 3 Comments Stair Climbing Comments Pt and showed a visual of patterning of her standard walker used at home: 3 step management using her standard walker over the step, to assimulate home environment patient was able to complete step to on/off 1 step x3 sets with plateform step using fWW CGA- Min A of 1 (her ). No LOB or deviations, and good supprot and cuing form patterning by . PT-Balance Assessment Sitting Balance and Reactions Static Sitting Balance Ability Normal Dynamic Sitting Balance Ability Normal Standing Balance and Reactions Static Standing Balance Ability Fair Dynamic Standing Balance Ability Poor Device Used FWW M5 PT-IP Objective Assessments Start: 07/26/19 10:56 Freq: NEEDED Status: Active Protocol: Document 07/26/19 09:51 AB (Rec: 07/26/19 11:29 AB [id number]) Orientation Orientation/Cognition Level of Alertness Alert Orientation Name,Place,Situation Language Function Ability No Deficits Noted Safety Awareness Understands Safety Issues Gross Range of Motion Lower Extremity ROM Assessment Left Impaired Impairments L knee flexion : ~ 60 deg L knee extension: -20 deg Strength Lower Extremity Strength Assessment Left Impaired Hip 3+/5 Knee 3-/5 Ankle 4-/5 Coordination Assessment Gross Coordination Gross Coordination WNL Sensation Assessment Sensation Gross Sensation WNL Muscle Tone Muscle Tone WNL Yes M6 PT-IP Treatment Start: 07/26/19 10:56 Freq: NEEDED Status: Active Protocol: Document 07/27/19 13:46 SP (Rec: 07/27/19 14:58 SP [id number]) Physical Therapy Treatment Education Education Provided Precautions,Weight Bearing Status,Safety M7 PT-IP Assessment and Plan Start: 07/26/19 10:56 Freq: NEEDED Status: Active Protocol: Document 07/27/19 13:46 SP (Rec: 07/27/19 14:58 SP [id number]) PT Summary Assessment and Plan Potential Rehabilitation Potential Good Status of Condition at Evaluation Evolving Summary Impairments Pain,ROM,Strength,Balance, Coordination,Bed Mobility, Transfers,Gait,Activity Tolerance Assessment Summary Pt and completed caregiver training including transfers, gait and step management usign FWW, improved step over step pattering during gait and decreased BUE heavy WB on FWW withincreased LLE WB during gait and transfers CGA, 1 in stance of LLE knee buckle during pivot turning but able to self recover. Pt is ok to go home with for assist of her needs. Recommend Outptient PT to continue progress in strength, ROM for increased independence in mobiltyi. Goals Bed Mobility Goal Standby Assistance Transfer Goal Standby Assistance Gait Goal Standby Assistance,Cane,Front Wheel Walker Gait Distance 100 Other Goals up/down 3 steps using standard walker min A Days to Meet Goals 5 Frequency of Treatment Frequency Of Treatment Twice a Day Treatment Plan Physical Therapy Treatment Plan Bed Mobility Training,Transfer Training,Gait Training, Therapeutic Exercise,Balance Retraining,Post Op Education, Discharge Planning,Hot or Cold Pack,Neuromuscular Re-ed, Coordination Retraining,Manual Therapy Recommendations To Nursing Amount of Assist Needed 1 Person Assist Discharge Recommendations PT Discharge Recommendations Home with Assistance, Outpatient PT
== END 2019-07-27 16:35 | disposition home or self-care (01) | DRG 470 ==
PROVIDERS: Admitting Provider Orthopaedic Surgery; PCP Family Medicine; Visit Provider Orthopaedic Surgery
PROC: 0SRD0JZ Replacement of Left Knee Joint with Synthetic Substitute, Open Approach (ICD-10-PCS; CPT 27447; principal; 2019-07-25 14:45)
DX: M17.12 Unilateral primary osteoarthritis, left knee (principal); Z68.41 Body mass index [BMI] 40.0-44.9, adult; Z96.651 Presence of right artificial knee joint; E66.01 Morbid (severe) obesity due to excess calories; E11.69 Type 2 diabetes mellitus with other specified complication; G47.33 Obstructive sleep apnea (adult) (pediatric); I10 Essential (primary) hypertension; E78.5 Hyperlipidemia, unspecified; Z87.891 Personal history of nicotine dependence; Z79.84 Long term (current) use of oral hypoglycemic drugs
CPT/HCPCS: 36415; 73560; 82962; 85014; 85018; 94760; 97110; 97116; 97162; 97165; 97530; 97535; C1776; C9290; J1170; J1885; J2250; J2270; J2405; J2704; J3010